=== PATIENT | female | born 1960 | race Caucasian/White ===

== ENCOUNTER 2019-08-16 21:03 | Observation (INO) | payer MEDICARE ==
[~2019-08-16] VITALS: Ht 177.8 cm; Wt 54.0 kg
--- NOTE | 2019-08-16 21:06 | NUR ---
PATIENT TO ROOM 13 VIA EMS STRETCHER. TRIAGE COMPLETED AT BEDSIDE. AWAITING MD PANDA.
[2019-08-16] MEDS ORDERED: PROTONIX40 M2 PO (21:27)
[2019-08-16] MEDS ORDERED: TRAZODONE50 MG PO (21:27)
[2019-08-16] MEDS ORDERED: ESCITALOPRAM OX10 MG PO (21:28)
[2019-08-16] MEDS ORDERED: LOMOTIL2.5 MG PO (21:29)
[2019-08-16] MEDS ORDERED: BUPRENORPHIN2 MG SL (21:30)
[2019-08-16 21:56] LABS: HEMATOCRIT 32.9 % (37.0-47.0); HEMOGLOBIN 11.2 g/dl (12.0-16.0); IMMATURE GRANULOCYTES 1.2 % (0.0-5.0); MEAN CELL VOLUME 89.2 fL CALC (80.0-100.0); MEAN CORPUSCULAR HGB 30.4 pG CALC (26.0-32.0); NEUT# 10.53 thou/uL (2.00-7.15); RED BLOOD COUNT 3.69 mill/uL (4.20-5.60); RED CELL DISTRI WIDTH 13.2 % (11.5-15.5)
[2019-08-16 22:13] LABS: ALKALINE PHOSPHATASE 156 u/l (38-126); AMYLASE 65 u/l (30-110); ANION GAP 13 (6-22 (CALC)); BILIRUBIN, TOTAL 1.5 mg/dL (0.0-1.4); BUN 18 mg/dL (7-17); BUN/CREATININE RATIO 21 (12-20 (CALC)); CARBON DIOXIDE 21 mmol/l (22-30); CHLORIDE 102 mmol/l (95-108); CREATININE 0.8 mg/dL (0.5-1.0); GFR > 60 ML/MIN (>=60 (CALC)); GFR FOR AFR.AMER. > 60 ML/MIN (>=60 (CALC)); LIPASE 42 u/l (23-300); POTASSIUM 3.4 mmol/l (3.5-5.1); SGOT/AST 46 u/l (14-36); SODIUM 132 mmol/l (137-146); TOTAL PROTEIN 8.2 g/dL (6.3-8.2)
[2019-08-16 22:25] LABS: MYOGLOBIN 37 ng/mL (0 - 62)
--- NOTE | 2019-08-16 22:45 | NUR ---
PT REFUSED CT SCANS DAUGHTER ATTEMPTED TO DISSUADE PT DR MALDONADO
--- NOTE | 2019-08-16 22:55 | NUR ---
PT AGREES TO CT FIRESTOP/CONTAINMENT WORKER INFORMED
--- NOTE | 2019-08-16 23:16 | NUR ---
W/P/D SKIN ASLEEP QUIETLY R SIDE LYING SR NO ECTOPY
[2019-08-17 00:21] LABS: URINE BLOOD DIPSTICK LARGE (NEGATIVE); URINE COLOR YELLOW; URINE GLUCOSE - DIPSTICK NEGATIVE (NEGATIVE); URINE KETONE NEGATIVE (NEGATIVE); URINE PROTEIN - DIPSTICK 30 mg/dL (NEG-TRACE); URINE UROBILINOGEN - DIPSTICK 0.2 E.U./dL (0.2)
[2019-08-17 00:31] LABS: URINE BILIRUBIN - DIPSTICK MODERATE (NEGATIVE); URINE LEUK ESTERASE LARGE (NEGATIVE); URINE NITRITE - DIPSTICK NEGATIVE (Negative)
[2019-08-17 00:32] LABS: URINE BACTERIA MANY hpf; URINE EPITHELIAL CELLS MODERATE EPI/hpf (0-FEW); URINE RBC >100 RBC/hpf (0-5); URINE WBC >100 WBC/hpf (0-5)
--- NOTE | 2019-08-17 00:37 | NUR ---
REMEDICATED FOER ABD PAIN RATED AT 7 NO N/V W/P/D SKIN
--- NOTE | 2019-08-17 01:29 | NUR ---
PT TAKES PO WATER SM AMTS WITH POTASSIUM TAB NO N/V PC
--- NOTE | 2019-08-17 02:12 | NUR ---
PHONE REPORT TO NURSE ROMERO ON MS
--- NOTE | 2019-08-17 02:15 | NUR ---
PT TRTANSPORTED TO RM271 MS IN STABLE CONDITION
--- NOTE | 2019-08-17 02:15 | NUR ---
PT ARRIVED TO THE MED SURG UNIT APPEARING IN STABLE CONDITION. PT WAS TRANSFERRED X3 ASSIST TO BED FROM STRETCHER. PT IS ASKING FOR BLANKETS/PROVIDED AND FOOD. DISCUSSED N/V STATUS WITH PT. ASSESSMENT COMPLETED AND V/S OBTAINED. COLOSTOMY HAS BALLARD LOOSE STOOL SMALL AMOUNT, DISCUSSED W/PT REGARDING SELF CARE REPORTED BY PT/DENIES NEED REGARDING THIS AT THIS TIME. PT REPORTS HAVING FISTULA'S IN RECTUM AREA, WE ATTEPTED PICTURES FOR CHART AND OFFERED NEW DRESSING, BUT PT REFUSED. SHE HAS PADS IN THAT AREA AND STATED, "I WILL TAKE CARE OF IT MYSELF." REFUSED BRANDI-CARE.
[2019-08-17 02:30] VITALS: BP 96/61
--- NOTE | 2019-08-17 02:30 | NUR ---
PT ASKED DEPUTY COURT CLERK FOR ICECREAM AND JUICE. I INFORMED PT THAT SHE NEEDS TO START WITH ICECHIPS AND WATER IF SHE HAS BEEN VOMITING, SHE DENIED VOMITING AND STATED THAT WAS "EARLY THIS MORNING."
--- NOTE | 2019-08-17 03:00 | NUR ---
PT IS SLEEPING AT THIS TIME. NO S/O DISTRESS NOTED.
[2019-08-17 03:23] VITALS: BP 104/65
--- NOTE | 2019-08-17 04:33 | NUR ---
PT CALLED ASKING FOR PAIN MEDICATION, I EXPLAINED TO THE PT THAT SHE ALREADY HAD MORPHINE IN THE ED AND THAT I HAD TYLENOL FOR THE MILD PAIN IF SHE WANTED THAT AND SHE COULD HAVE ATIVAN AT 6AM. SHE SAID TYLENOL MAKES HER SICK, I OFFERED ZOFRAN FOR NAUSEA/REFUSED STATING, "I'LL WAIT TILL 6." NO S/O DISTRESS NOTED. CALL LIGHT AT SIDE, LIGHTS TURNED OFF AND TV ON.
[2019-08-17 05:34] LABS: HEMATOCRIT 29.8 % (37.0-47.0); HEMOGLOBIN 10.3 g/dl (12.0-16.0); IMMATURE GRANULOCYTES 0.6 % (0.0-5.0); MEAN CELL VOLUME 89.5 fL CALC (80.0-100.0); MEAN CORPUSCULAR HGB 30.9 pG CALC (26.0-32.0); MEAN CORPUSCULAR HGB CONC 34.6 g/dL CAL (32.0-36.0); NEUT# 5.99 thou/uL (2.00-7.15); RED BLOOD COUNT 3.33 mill/uL (4.20-5.60); RED CELL DISTRI WIDTH 13.2 % (11.5-15.5)
[2019-08-17 05:46] LABS: ANION GAP 11 (6-22 (CALC)); BUN 15 mg/dL (7-17); BUN/CREATININE RATIO 22 (12-20 (CALC)); CARBON DIOXIDE 20 mmol/l (22-30); CHLORIDE 105 mmol/l (95-108); CREATININE 0.7 mg/dL (0.5-1.0); GFR > 60 ML/MIN (>=60 (CALC)); GFR FOR AFR.AMER. > 60 ML/MIN (>=60 (CALC)); POTASSIUM 3.3 mmol/l (3.5-5.1); SODIUM 132 mmol/l (137-146)
[2019-08-17 05:58] LABS: MAGNESIUM 0.3 mg/dL (1.6-2.3)
[2019-08-17 10:14] VITALS: BP 88/57
--- NOTE | 2019-08-17 10:14 | NUR ---
RECIEVED REPORT FROM IRMA ROMERO. PT RESTING IN SEMI FOWLERS POSITION UPON ENTERING ROOM. INTRODUCED SELF TO PT AND DISCUSSED POC. ASSESSMENT AND VITALS COMPLETED AT THIS TIME. BP 88/57, HR 83, O2 94% ON ROOM AIR. RESPIRATIONS ARE EVEN AND UNLABORED. LUNG SOUNDS ARE CLEAR. HEART RHYTHM IS NORMAL, TELE IN PLACE. BOWEL SOUNDS ARE ACTIVE IN ALL QUADRANTS. COLOSTOMY BAG IN PLACE, PT INFORMS WRITTER THAT SHE TAKES CARE OF IT HER SELF. RADIAL AND PEDAL PULSES ARE STRONG WITH NORMAL CAPILLARY REFILL. PT DOES PRESENT WITH LARGE BRUISE ON HER CHIN AND UNDER EYES, INFORMED THAT THEY WERE FROM A FALL PIROR TO ARRIVING TO [facility]. 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 PICTURES HAVE BEEN OBTAINED AND DOCUMENTED. PT INFORMS WRITTER THAT SHE ALSO CARES FOR THOSE HER SELF BY "PLACING PADS IN HER UNDERWEAR FOR THE BLEEDING". PT DOES COMPLAIN OF PAIN ALL OVER BODY, INFORMED PT THAT I DID NOT HAVE ANYTHING CURRENTLY FOR PAIN AND I WAS NOT ABLE TO GIVE ANYTHING DUE TO HER LOW BP. PT VERBALIZED UNDERSTANDING. KEELY INFORMED OF NEED FOR PAIN MEDICATION. IV RUNNING AT 125 ML ORDERED, SITE APPEARS HEALTHY AND PATENT. PT DENIES ANY PAIN OR DISCOMFORTS AT THIS TIME. ALL SAFTEY PRECAUTIONS IN PLACE. WILL CONTINUE TO MONITOR.
[2019-08-17 11:40] VITALS: BP 91/57
--- NOTE | 2019-08-17 12:00 | NUR ---
PT RESTING IN SEMI FOWLERS POSITION. RESPIRATIONS ARE EVEN AND UNLABORED. PT COMPLAINS OF BODY PAIN, KEELY NOTIFIED FOR NEED OF PAIN MED. NO NEW ORDERS RECIEVED AT THIS TIME. PT DENIES ANY OTHER PAINS OR DISCOMFORTS AT THIS TIME. ALL SAFTEY PRECAUTIONS ARE IN PLACE WITH CALL LIGHT IN REACH. WILL CONTINUE TO MONITOR
--- NOTE | 2019-08-17 14:53 | NUR ---
NEW ORDER FOR BUPRENEX TO ASSIST WITH PT PAIN,MED ADMISTERED WITH MEDICATION.PT RESPIRTAIONS ARE EVEN AND UNLABORED. PT DENIES ANY ADDITION DISCOMFORTS OR NEEDS AT THIS TIME. ALL SAFTEY PRECAUTIONS REMAIN IN PLACE AT THIS TIME. WILL CONTINUE TO MONITOR.
--- NOTE | 2019-08-17 16:00 | NUR ---
PT RESTING IN SEMI FOWLERS POSITION WATCHING TV, RESPIRATIONS ARE EVEN AND UNLABORED WITH NO SIGNS OF DISTRESS. PT INFORMS WRITTER THAT PAIN MEDICATION IS WORKING.PT DENIES ANY ADDITIONAL NEEDS AT THIS TIME. ALL SAFTEY PRECAUTIONS IN PLACE WITH CALL LIGHT IN REACH. WILL CONTINUE TO MONITOR.
[2019-08-17 16:17] VITALS: BP 84/50
[2019-08-17 18:30] VITALS: BP 87/55
--- NOTE | 2019-08-17 19:47 | NUR ---
PT RESTING IN BED, ALERT AND ORIENTED. RESPIRATIONS EVEN AND UNLABORED ON RA, LUNGS SOUND CLEAR. PEDAL PULSES ARE WEAK. PT REPORTS HAVING PAIN IN HER BACK 09/08, PT EDUCATED ON PAIN MED SCHEDULE AND PROVIDED WITH WARM PACKS. PT PROVIDED WITH A COLA PER REQUEST. TELE IN PLACE. CALL CUEVAS WITHIN REACH. WILL CONTINUE TO MONITOR.
--- NOTE | 2019-08-18 00:03 | NUR ---
PT RESTING IN BED. RESPIRATIONS EVEN AND UNLABORED. NO S/S OF DISTRESS AT THIS TIME. SAFETY PRECAUTIONS IN PLACE. WILL CONTINUE TO MONITOR.
--- NOTE | 2019-08-18 04:19 | NUR ---
ASSISTED PT BACK INTO BED FROM THE RESTROOM. SAFETY PRECAUTIONS IN PLACE. WILL CONTINUE TO MONITOR.
[2019-08-18 04:24] VITALS: BP 86/59
[2019-08-18 05:41] LABS: HEMOGLOBIN 10.2 g/dl (12.0-16.0); MEAN CELL VOLUME 89.6 fL CALC (80.0-100.0); MEAN CORPUSCULAR HGB 30.4 pG CALC (26.0-32.0); RED BLOOD COUNT 3.35 mill/uL (4.20-5.60); RED CELL DISTRI WIDTH 13.2 % (11.5-15.5)
[2019-08-18 06:13] LABS: ALBUMIN 2.4 g/dL (3.2-5.0); ALKALINE PHOSPHATASE 177 u/l (38-126); ANION GAP 10 (6-22 (CALC)); BILIRUBIN, TOTAL 1.1 mg/dL (0.0-1.4); BUN 15 mg/dL (7-17); BUN/CREATININE RATIO 23 (12-20 (CALC)); CARBON DIOXIDE 22 mmol/l (22-30); CHLORIDE 103 mmol/l (95-108); CREATININE 0.7 mg/dL (0.5-1.0); GFR > 60 ML/MIN (>=60 (CALC)); GFR FOR AFR.AMER. > 60 ML/MIN (>=60 (CALC)); MAGNESIUM 1.5 mg/dL (1.6-2.3); POTASSIUM 3.5 mmol/l (3.5-5.1); SGOT/AST 36 u/l (14-36); SODIUM 132 mmol/l (137-146); TOTAL PROTEIN 6.8 g/dL (6.3-8.2)
[2019-08-18 07:35] VITALS: BP 91/56
--- NOTE | 2019-08-18 09:30 | NUR ---
PT SEEN RESTING IN BED, ALERT AND ORIENTED X 3. LUNGS CLEAR, RA. PT PROVIDED SNACK. COLOSTOMY IN PLACE, SELF CARE.
--- NOTE | 2019-08-18 09:53 | NUR ---
PT screen Patient was screened for PT intervention. It is difficult to tell if she has functional disability that would could affect. We will review her in rounds as well but await medical before any PT intervention. I would recommend a behavioral health consult as given her Dx of narcotic withdrawal and chronic pain
[2019-08-18 11:10] VITALS: BP 88/57
[2019-08-18] MEDS ORDERED: BUPRENORPHIN2 MG SL (12:06)
[2019-08-18] MEDS ORDERED: KEFLEX500 MG PO (12:06)
--- NOTE | 2019-08-18 13:39 | NUR ---
PT SEEN BY DR MARQUEZ, WILL DISCHARGE TO HOME TODAY. PT TO RECEIVE ENOUGH PAIN MEDS TO LAST UNTIL THURSDAY APPT. TELE REMOVED. IV OUT.
[2019-08-18 14:10] VITALS: BP 85/57
--- NOTE | 2019-08-18 15:19 | NUR ---
PT HAS BEEN DISCHARGED FROM [facility]. DAUGHTER HAS ARRIVED TO DRIVE HER HOME. PT AND DTR VERBALIZE UNDERSTANDING OF DC INSTRUCTIONS, TAKEN BY WHEELCHAIR TO LOBBY. MEDICATIONS FROM PHARMACY RETURNED TO PT. PT LEAVES [facility] IN STABLE CONDITION, 2 RXs IN HAND.
[2019-08-18] MEDS ORDERED: ULTRAM50 M1 PO (17:58)
--- NOTE | 2019-08-19 12:14 | NUR ---
NEW RX FOR BACTRIM CALLED IN TO [facility] DUE TO URINE CX RESULTS. DAUGHTER KATALINA IS AWARE, WILL COCOA MILL OPERATOR WITH AFTERNOON. ALSO LM WITH PT
== END 2019-08-18 15:18 | disposition home health service (06) ==
LOC: ED 21:03 → ED-I 08-17 01:04 → ED 08-17 01:23 → MS2 08-17 01:24 → ED-I 08-17 01:24 → MS2 08-17 01:55
PROVIDERS: Emergency Medicine; Nurse Practitioner Family; ADMIT Internal Medicine; ATTEND Internal Medicine
DX: F11.23 Opioid dependence with withdrawal (principal); N39.0 Urinary tract infection, site not specified; E87.6 Hypokalemia; E83.42 Hypomagnesemia; G89.29 Other chronic pain; F10.20 Alcohol dependence, uncomplicated; R64 Cachexia; E46 Unspecified protein-calorie malnutrition; S00.83XA Contusion of other part of head, initial encounter; F17.210 Nicotine dependence, cigarettes, uncomplicated; W19.XXXA Unspecified fall, initial encounter; Z68.1 Body mass index [BMI] 19.9 or less, adult; Z93.3 Colostomy status; Z20.828 Contact with and (suspected) exposure to other viral communicable diseases; S09.90XA Unspecified injury of head, initial encounter; S49.92XA Unspecified injury of left shoulder and upper arm, initial encounter; S41.112A Laceration without foreign body of left upper arm, initial encounter; W10.9XXA Fall (on) (from) unspecified stairs and steps, initial encounter; Y92.009 Unspecified place in unspecified non-institutional (private) residence as the place of occurrence of the external cause
CPT/HCPCS: G0378; J2060; J3475

== ENCOUNTER 2019-08-18 20:12 | Emergency (ER) | payer MEDICARE ==
[~2019-08-18] VITALS: Ht 177.8 cm; Wt 63.6 kg
[~2019-08-18 20:12] MED LIST: BUPRENORPHIN2 MG SL; ESCITALOPRAM OX10 MG PO; KEFLEX500 MG PO; LOMOTIL2.5 MG PO; PROTONIX40 M2 PO; TRAZODONE50 MG PO; ULTRAM50 M1 PO
[2019-08-18 21:37] VITALS: BP 98/55
== END 2019-08-18 23:30 | disposition home or self-care (01) ==
LOC: ED 20:12
DX: S41.112A Laceration without foreign body of left upper arm, initial encounter (principal); S09.90XA Unspecified injury of head, initial encounter; W10.9XXA Fall (on) (from) unspecified stairs and steps, initial encounter; Y92.009 Unspecified place in unspecified non-institutional (private) residence as the place of occurrence of the external cause

== ENCOUNTER 2019-11-03 02:57 | Emergency (ER) | payer MEDICARE ==
[~2019-11-03] VITALS: Ht 177.8 cm; Wt 54.5 kg
[2019-11-03 03:38] LABS: HEMATOCRIT 34.3 % (37.0-47.0); IMMATURE GRANULOCYTES 0.5 % (0.0-5.0); MEAN CELL VOLUME 89.6 fL CALC (80.0-100.0); MEAN CORPUSCULAR HGB 28.7 pG CALC (26.0-32.0); MEAN CORPUSCULAR HGB CONC 32.1 g/dL CAL (32.0-36.0); NEUT# 12.47 thou/uL (2.00-7.15); RED BLOOD COUNT 3.83 mill/uL (4.20-5.60); RED CELL DISTRI WIDTH 14.6 % (11.5-15.5)
[2019-11-03 03:57] LABS: ALBUMIN 3.5 g/dL (3.2-5.0); ALKALINE PHOSPHATASE 358 u/l (38-126); AMYLASE 63 u/l (30-110); ANION GAP 14 (6-22 (CALC)); BILIRUBIN, TOTAL 0.8 mg/dL (0.0-1.4); BUN 10 mg/dL (7-17); BUN/CREATININE RATIO 14 (12-20 (CALC)); CARBON DIOXIDE 22 mmol/l (22-30); CHLORIDE 102 mmol/l (95-108); CREATININE 0.7 mg/dL (0.5-1.0); GFR > 60 ML/MIN (>=60 (CALC)); GFR FOR AFR.AMER. > 60 ML/MIN (>=60 (CALC)); LIPASE 76 u/l (23-300); SGOT/AST 47 u/l (14-36); SODIUM 135 mmol/l (137-146); TOTAL PROTEIN 9.1 g/dL (6.3-8.2)
[2019-11-03 04:08] LABS: MYOGLOBIN 24 ng/mL (0 - 62)
[2019-11-03 05:18] LABS: URINE BILIRUBIN - DIPSTICK NEGATIVE (NEGATIVE); URINE BLOOD DIPSTICK NEGATIVE (NEGATIVE); URINE COLOR YELLOW; URINE GLUCOSE - DIPSTICK NEGATIVE (NEGATIVE); URINE KETONE NEGATIVE (NEGATIVE); URINE NITRITE - DIPSTICK NEGATIVE (Negative); URINE PROTEIN - DIPSTICK TRACE mg/dL (NEG-TRACE)
[2019-11-03 05:30] LABS: URINE LEUK ESTERASE MODERATE (NEGATIVE)
[2019-11-03 06:02] LABS: URINE BACTERIA MANY hpf; URINE SQUAMOUS EPITHELIAL CELL FEW EPI/hpf (0-FEW); URINE WBC 50-100 WBC/hpf (0-5)
[2019-11-03 09:00] VITALS: BP 123/63
== END 2019-11-03 07:35 | disposition short-term general hospital (02) ==
LOC: ED 02:57
PROVIDERS: Emergency Medicine
DX: L02.31 Cutaneous abscess of buttock (principal); L98.8 Other specified disorders of the skin and subcutaneous tissue; N39.0 Urinary tract infection, site not specified; E87.6 Hypokalemia; E83.42 Hypomagnesemia; K50.90 Crohn's disease, unspecified, without complications; M41.9 Scoliosis, unspecified; F17.210 Nicotine dependence, cigarettes, uncomplicated; Z93.3 Colostomy status; Z90.49 Acquired absence of other specified parts of digestive tract; Z20.828 Contact with and (suspected) exposure to other viral communicable diseases
CPT/HCPCS: J1956; J3475; Q9967

== ENCOUNTER 2019-11-23 21:56 | Emergency (ER) | payer MEDICARE ==
[~2019-11-23] VITALS: Ht 177.8 cm; Wt 66.0 kg
[2019-11-23] MEDS ORDERED: PROTONIX40 M2 PO (22:08)
[2019-11-23] MEDS ORDERED: TYLENOL500 MG PO (22:09)
[2019-11-23] MEDS ORDERED: LOMOTIL2.5 MG PO (22:09)
[2019-11-23] MEDS ORDERED: TRAZODONE50 MG PO (22:11)
[2019-11-23] MEDS ORDERED: LEXAPRO10 MG PO (22:11)
[2019-11-23 22:21] LABS: IMMATURE GRANULOCYTES 0.4 % (0.0-5.0); MEAN CORPUSCULAR HGB 28.4 pG CALC (26.0-32.0); MEAN CORPUSCULAR HGB CONC 31.2 g/dL CAL (32.0-36.0); NEUT# 5.19 thou/uL (2.00-7.15); RED BLOOD COUNT 2.89 mill/uL (4.20-5.60)
[2019-11-23 22:22] LABS: HEMATOCRIT 26.3 % (37.0-47.0); HEMOGLOBIN 8.2 g/dl (12.0-16.0)
[2019-11-23 22:40] LABS: ALBUMIN 3.1 g/dL (3.2-5.0); ALKALINE PHOSPHATASE 301 u/l (38-126); BUN 15 mg/dL (7-17); BUN/CREATININE RATIO 19 (12-20 (CALC)); CREATININE 0.8 mg/dL (0.5-1.0); GFR > 60 ML/MIN (>=60 (CALC)); GFR FOR AFR.AMER. > 60 ML/MIN (>=60 (CALC)); SGOT/AST 36 u/l (14-36); SODIUM 139 mmol/l (137-146); TOTAL PROTEIN 7.6 g/dL (6.3-8.2)
[2019-11-23 22:41] LABS: ANION GAP 12 (6-22 (CALC)); BILIRUBIN, TOTAL 0.4 mg/dL (0.0-1.4); CARBON DIOXIDE 16 mmol/l (22-30); CHLORIDE 115 mmol/l (95-108); POTASSIUM 3.8 mmol/l (3.5-5.1)
[2019-11-24] MEDS ORDERED: BACTRIM DS1 TAB PO (00:27)
[2019-11-24] MEDS ORDERED: TRAMADOL HCL50 MG PO (00:27)
[2019-11-24 00:28] LABS: URINE BILIRUBIN - DIPSTICK NEGATIVE (NEGATIVE); URINE BLOOD DIPSTICK TRACE-INTACT (NEGATIVE); URINE COLOR YELLOW; URINE GLUCOSE - DIPSTICK NEGATIVE (NEGATIVE); URINE KETONE NEGATIVE (NEGATIVE); URINE NITRITE - DIPSTICK NEGATIVE (Negative); URINE PROTEIN - DIPSTICK NEGATIVE (NEG-TRACE); URINE UROBILINOGEN - DIPSTICK 0.2 E.U./dL (0.2)
[2019-11-24 00:45] LABS: URINE LEUK ESTERASE MODERATE (NEGATIVE)
[2019-11-24 00:56] LABS: URINE BACTERIA FEW hpf; URINE SQUAMOUS EPITHELIAL CELL FEW EPI/hpf (0-FEW); URINE WBC 20-50 WBC/hpf (0-5)
[2019-11-24 09:01] VITALS: BP 127/63
== END 2019-11-24 09:01 | disposition home or self-care (01) ==
LOC: ED 21:56
PROVIDERS: Family Medicine
DX: E46 Unspecified protein-calorie malnutrition (principal); K60.4 Rectal fistula; K50.90 Crohn's disease, unspecified, without complications; F17.210 Nicotine dependence, cigarettes, uncomplicated; Z90.49 Acquired absence of other specified parts of digestive tract; Z93.3 Colostomy status
CPT/HCPCS: Q9967

== ENCOUNTER 2020-02-01 21:03 | Emergency (ER) | payer MEDICARE ==
[~2020-02-01] VITALS: Ht 177.8 cm; Wt 56.0 kg
[~2020-02-01 21:03] MED LIST changes: +BACTRIM DS1 TAB PO; +LEXAPRO10 MG PO; +TRAMADOL HCL50 MG PO; +TYLENOL500 MG PO
[2020-02-01 22:02] LABS: HEMATOCRIT 28.3 % (37.0-47.0); HEMOGLOBIN 8.8 g/dl (12.0-16.0); IMMATURE GRANULOCYTES 0.5 % (0.0-5.0); MEAN CELL VOLUME 87.9 fL CALC (80.0-100.0); MEAN CORPUSCULAR HGB 27.3 pG CALC (26.0-32.0); MEAN CORPUSCULAR HGB CONC 31.1 g/dL CAL (32.0-36.0); NEUT# 7.08 thou/uL (2.00-7.15); RED BLOOD COUNT 3.22 mill/uL (4.20-5.60); RED CELL DISTRI WIDTH 16.2 % (11.5-15.5)
[2020-02-01 22:24] LABS: ALBUMIN 3.7 g/dL (3.2-5.0); ANION GAP 15 (6-22 (CALC)); BILIRUBIN, TOTAL 0.4 mg/dL (0.0-1.4); BUN 26 mg/dL (7-17); BUN/CREATININE RATIO 25 (12-20 (CALC)); CARBON DIOXIDE 17 mmol/l (22-30); CHLORIDE 110 mmol/l (95-108); GFR 57 ML/MIN (>=60 (CALC)); GFR FOR AFR.AMER. > 60 ML/MIN (>=60 (CALC)); POTASSIUM 4.1 mmol/l (3.5-5.1); SGOT/AST 52 u/l (14-36); SODIUM 138 mmol/l (137-146); TOTAL PROTEIN 8.7 g/dL (6.3-8.2)
[2020-02-01 22:26] LABS: ALKALINE PHOSPHATASE 489 u/l (38-126)
[2020-02-01] MEDS ORDERED: TRAMADOL HYDROC50 MG PO (23:59)
[2020-02-01] MEDS ORDERED: BACTRIM DS1 TAB PO (23:59)
[2020-02-02 08:30] VITALS: BP 117/66
== END 2020-02-02 08:30 | disposition home or self-care (01) ==
LOC: ED 21:03
PROVIDERS: Family Medicine
DX: K50.113 Crohn's disease of large intestine with fistula (principal); L03.317 Cellulitis of buttock; F17.200 Nicotine dependence, unspecified, uncomplicated; Z93.3 Colostomy status
CPT/HCPCS: Q9967

== ENCOUNTER 2020-02-13 15:57 | Inpatient (IN) | payer MEDICARE ==
[~2020-02-13] VITALS: Ht 177.8 cm; Wt 64.0 kg
[~2020-02-13 15:57] MED LIST changes: +TRAMADOL HYDROC50 MG PO
--- NOTE | 2020-02-13 16:05 | NUR ---
PATIENT ARRIVED VIA EMS AND IS ON DELAYED OFFLOAD. PATIENT IS ALERT AND ORIENTED. MD NOTIFIED OF PATIENT STATUS
--- NOTE | 2020-02-13 16:24 | NUR ---
PATEINT TO ROOM 9 FOR EXAM MD NOTIFIED OF PATIENT STATUS
[2020-02-13] MEDS ORDERED: LEXAPRO10 MG PO (17:00)
[2020-02-13] MEDS ORDERED: BACTRIM DS1 TAB PO (17:01)
--- NOTE | 2020-02-13 17:29 | NUR ---
LABS DRAWN, MEDICATION ADMINSTRED PT WITHOUT DISTRESS
[2020-02-13 17:33] LABS: HEMATOCRIT 25.1 % (37.0-47.0); IMMATURE GRANULOCYTES 0.6 % (0.0-5.0); MEAN CORPUSCULAR HGB 26.1 pG CALC (26.0-32.0); MEAN CORPUSCULAR HGB CONC 31.9 g/dL CAL (32.0-36.0); NEUT# 12.76 thou/uL (2.00-7.15); RED BLOOD COUNT 3.06 mill/uL (4.20-5.60)
[2020-02-13 17:50] LABS: URINE BILIRUBIN - DIPSTICK NEGATIVE (NEGATIVE); URINE BLOOD DIPSTICK NEGATIVE (NEGATIVE); URINE COLOR YELLOW; URINE GLUCOSE - DIPSTICK NEGATIVE (NEGATIVE); URINE KETONE NEGATIVE (NEGATIVE); URINE LEUK ESTERASE NEGATIVE (NEGATIVE); URINE NITRITE - DIPSTICK NEGATIVE (Negative); URINE PROTEIN - DIPSTICK NEGATIVE (NEG-TRACE); URINE SPECIFIC GRAVITY >=1.030; URINE UROBILINOGEN - DIPSTICK 0.2 E.U./dL (0.2)
[2020-02-13 17:52] LABS: ALBUMIN 2.6 g/dL (3.2-5.0); BILIRUBIN, TOTAL 0.4 mg/dL (0.0-1.4); CREATININE 1.2 mg/dL (0.5-1.0); POTASSIUM 3.2 mmol/l (3.5-5.1); TOTAL PROTEIN 6.9 g/dL (6.3-8.2)
--- NOTE | 2020-02-13 18:23 | NUR ---
PRIOR TO RADIOLOGY DILUADID GIVEN
--- NOTE | 2020-02-13 19:04 | NUR ---
PT REPORTS IMPROVEMENT WITH DILAUDID FROM A 9 TO A 3
--- NOTE | 2020-02-13 19:43 | NUR ---
PT WENT TO ULTRASOUND
--- NOTE | 2020-02-13 20:19 | NUR ---
PT RETURNED FROM RADIOLOGY GAVE ANTIBIOTICS WILL GIVE VANCO AFTER ZOSYN COMPLETED
--- NOTE | 2020-02-13 21:26 | NUR ---
DILAUDID GIVEN FOR PAIN AFTER ULTRASOUND AGGRAVATED IT
--- NOTE | 2020-02-13 22:02 | NUR ---
IMPROVEMENT FROM PAIN AFTER DILAUDID
--- NOTE | 2020-02-13 23:07 | NUR ---
Admission Note Report Given to: IRMA VALERO Transported by: Wheelchair X Stretcher Transported with: X Nurse Transporter X Patent IV O2 X Durability Engineer Location: ICU X MS2
[2020-02-13 23:19] VITALS: BP 114/65
[2020-02-14] VITALS (10 sets, daily range): BP systolic 85–119; BP diastolic 50–66
--- NOTE | 2020-02-14 | NUR ---
PATIENT ADMITTED FROM ER VIA STRETCHER WITH ER STAFF IN ATTENDANCE. PATIENT IS ABLE TO WALK TO THE BED. AWAKE ALERT AND ORIENTEDX3. PATIENT ADMITTED FOR ABD PAIN/CHOLECYSTITIS. PATIENT WITH C/O ABD PAIN. NPO AT THIS TIME. PATIENT WITH COLOSTOMY TO LEFT ABD-APPLIANCE IS INTACT WITH SMALL AMT OF SOFT BROWN STOOL NOTED. IV SITE TO LEFT AC INTACT. IVF NS HUNG AND INFUSING AT 125CC/HR. SITE IS HEALTHY AT THIS TIME. PATIENT ORIENTED TO ROOM AND SURROUNDINGS. INSTRUCTED ON USE OF NURSE CALL LIGHT SYSTEM AND TV REMOTE. SAFETY PRECAUTIONS REVIEWED WITH PATIENT. CALL LIGHT IN REACH. WILL CONT TO MONITOR.
--- NOTE | 2020-02-14 02:00 | NUR ---
ZOSYN INFUSING ORDERED VIA LEFT AC SITE. MEDICATED FOR PAIN WITH MORPHINE 2MG IVP FOR 9/10 ON PAIN SCALE. IVF NS PATENT AND INFUSING ORDERED. CALL LIGHT IN REACH. WILL CONT TO MONITOR.
--- NOTE | 2020-02-14 06:30 | NUR ---
PATIENT RESTING IN BED-MEDICATED FOR C/O NAUSEA WITH ZOFRAN ORDERED AND WITH MORPHINE 2MG IVP FOR ABD PAIN. REMAINS NPO-IVF NS PATENT AND INFUSING VIA LEFT AC SITE AT 125CC/HR. ZOSYN INFUSED ORDERED. CALL LIGHT IN REACH. WILL CONT TO MONITOR.
--- NOTE | 2020-02-14 07:05 | NUR ---
REPORT RECEIVED FROM IRMA VALERO
--- NOTE | 2020-02-14 08:35 | NUR ---
AT BEDSIDE DISCUSSING POC.
--- NOTE | 2020-02-14 08:45 | NUR ---
PT RESTING IN SEMI FOWLERS POSITION,A&O X3;VS OBTAINED AND ASSESSMENT COMPLETED;PT REPORTS ABDOMINAL PAIN RATING 8/10 ON THE PAIN SCALE AND REQUESTS PRN PAIN MEDICATION;PT REFUSES MORPHINE AND REQUESTS MD IRAM NOTIFIED;RESPIRATIONS EVEN AND UNLABORED ON RA,CLEAR LUNG SOUNDS;ABDOMEN SOFT ON PALPATION AND ACTIVE IN ALL 4 QUADRANTS, TENDERNESS NOTED THROUGHOUT;COLOSTOMY BAG NOTED TO LEFT ABDOMEN, STOMA APPEARS HEALTHY IN COLOR;TELE MONITORING IN PLACE;STRONG PEDAL PULSES;EMS #20G TO LAC INFUSING NS @ 125ML/HR,SITE APPEARS HEALTHY;PT DENIES ANY ADDITIONAL NEEDS AT THIS TIME AND IS ENCOURAGED TO CALL FOR ASSISTANCE IF NEEDED;CALL LIGHT IN REACH;FREQUENT ROUNDS MADE.
--- NOTE | 2020-02-14 10:13 | NUR ---
PT MEDICATED WITH PRN DILAUDID 1MG IVP AT THIS TIME FOR ABDOMINAL PAIN RATING 8/10 ON THE PAIN SCALE;WILL CONTINUE TO MONITOR FOR EFFECTIVENESS
--- NOTE | 2020-02-14 11:35 | NUR ---
PT RESTING IN SEMI FOWLERS POSITION;RESPIRATIONS EVEN AND UNLABORED ON RA;PT REPORTS ABDOMINAL PAIN RELIEF AFTER PAIN MEDICATION ADMINISTRATION RATING PAIN 4/10 ON THE PAIN SCALE;IV FLUIDS INFUSING WITH EASE PER ORDER AND ABX STARTED AT THIS TIME;TELE MONITORING IN PLACE;PT DENIES ANY ADDITIONAL NEEDS AT THIS TIME;ENCOURAGED TO CALL FOR ASSISTANCE IF NEEDED;FALL PRECAUTIONS IN PLACE WITH CALL LIGHT IN REACH;FREQUENT ROUNDS MADE.
--- NOTE | 2020-02-14 12:38 | NUR ---
LAB AT BEDSIDE
--- NOTE | 2020-02-14 12:40 | NUR ---
PT TRANSPORTED TO OR AT THIS TIME VIA STRETCHER ACCOMPANIED BY IRMA ELLISON.
--- NOTE | 2020-02-14 16:10 | NUR ---
PT ARRIVED BACK TO MED/SURG ROOM 272 IN STABLE CONDITION VIA STRETCHER ACCOMPANIED BY ADA RN;PT ASSISTED TO BEDSIDE WITH MINIMAL ASSISTANCE;PT REPORTS A&O X3 BUT DROWSY;VS OBTAINED AND ASSESSMENT COMPLETED;PT REPORTS ABDOMINAL PAIN RATING 10/10 ON THE PAIN SCALE, PT TO BE MEDICATED WITH PRN DILAUDID 1MG IVP PER ORDER;RESPIRATIONS EVEN AND UNLABORED ON RA;DRESSING TO ABDOMEN CDI X3;SABINO DRAIN DRAINING MINIMAL BLOODY DRAINAGE;EMS #20G TO LAC INFUSING PER ORDER AND 20MEQ OF K STARTED AT THIS TIME;TELE MONITORING PLACED BACK ONTO PT;PT DENIES ANY ADDITIONAL NEEDS AND IS ENCOURAGED TO CALL FOR ASSISTANCE IF NEEDED;FALL PRECAUTIONS IN PLACE WITH CALL LIGHT IN REACH;FREQUENT ROUNDS TO BE MADE.
--- NOTE | 2020-02-14 17:40 | NUR ---
PT APPEARS TO BE SLEEPING UPON ENTERING THE ROOM, WAKES EASILY TO VERBAL STIMULI;PT REPORTS ABDOMINAL PAIN AND REQUESTS PRN DILAUDID.PT EDUCATED ON DILAUDID PAIN MEDICATION SCHEDULE AND VERBALIZES UNDERSTANDING;IV FLUIDS CONTINUE TO INFUSE WITH EASE;TELE MONITORING IN PLACE AND JOSE CRUZ DRAIN EMPTIED OF 20CC OF BLOODY DRAINAGE;PT DENIES ANY ADDIITONAL NEEDS;CALL LIGHT IN REACH;FREQUENT ROUNDS MADE.
--- NOTE | 2020-02-14 20:00 | NUR ---
PATIENT RESTING IN BED AT THIS TIME-PALE AND C/O SEVERE POST-OP ABD PAIN-BP-107/58 HR-62. PAIN IS 9/10AND PATIENT MEDICATED WITH DILAUDID 1MG IVP FOR PAIN. IV SITE TO LEFT AC INTACT WITH IVF NS PATENT AND INFUSING AT 125CC/HR. SITE IS HEALTHY. PATIENT WITH JOSE CRUZ DRAIN TO RIGHT ABD INTACT AND DRAINING SEROSANGUINOUS FLUID. SMALL AMT OF SHADOWING NOTED TO LATERAL PORTION OF ABD POST-OP DRESSING. OTHER 2 ABD DRESSINGS ARE CDI. ABD IS SOFT WITH ACTIVE BS. COLOSTOMY APPLIANCE INTACT WITH SMALL AMT OF SOFT BROWN STOOL NOTED. TELE MONITOR IN PLACE. SAFETY PRECAUTIONS REINFORCED. WITH PATIENT. CALL LIGHT IN REACH. WILL CONT TO MONITOR.
--- NOTE | 2020-02-14 22:15 | NUR ---
PATIENT CALLED AND REQUESTING PAIN/ NAUSEA MEDS. BP-95/57, HR-87. PATIENT MEDICATED FOR NAUSEA WITH ZOFRAN 4MG IVP. IVF PATENT AND INFUSING VIA LEFT AC SITE AT 125CC/HR. MAG SULFATE HUNG ORDERED. CALL LIGHT IN REACH. WILL CONT TO MONITOR.
--- NOTE | 2020-02-14 23:50 | NUR ---
PATIENT CALLED AND REPORTED THAT "HER INCISION OPENED UP"-RESPONDED TO PATIENT ROOM AND FOUND THAT PATIENT RIGHT SIDE ABD DRESSING SATURATED AND PATIENT GOWN SAT WITH BLOOD WELL LINEN PAD UNDER PATIENT. DRESSING REMOVED AND FOUND DONAL INTACT AND OOZING FROM LAT PORTION OF INCISION. PRESSURE APPLIED AND NEW DRESSING APPLIED-4X4 AND ABD SECURED WITH PAPERTAPE. OTHER DRESSINGSX2 REMOVED AND DONAL INTACT WITH NO DRAINAGE NOTED. 4X4 GAUIZE DRESSINGS APPLIED AND SECURED WITH TEGADERM. JOSE CRUZ DRAIN EMPTIED FOR 50CC OF BLOODY DRAINAGE. PATIENT VERY EMOTIONAL AND C/O SEVERE ABD PAIN-10/10 ON PAIN SCALE-MEDICATED WITH DILAUDID 1MG FOR PAIN. BP PRIOR TO PAIN MEDS 119/55.
[2020-02-15] VITALS (9 sets, daily range): BP systolic 86–132; BP diastolic 51–67
--- NOTE | 2020-02-15 00:30 | NUR ---
PATIENT RESTING IN BED-STATES THAT HER PAIN IS NOW 9/10 AND WANTS TO KNOW HOW MUCH DILAUDID SHE GOT AND WHEN CAN SHE GET IT AGAIN. PATIENT DOES NOT APPEAR IN DISTRESS. PATIENT WAS TOLD HOW MUCH SHE RECIEVED AND WHEN SHE CAN BE MEDICATED AGAIN. PATIENT WATCHING TV.MAG SULFATE INFUSING ORDERED. ABD DRESSING IS CDI AT THIS TIME. CALL LIGHT IN REACH. WILL CONT TO MONITOR.
--- NOTE | 2020-02-15 04:41 | NUR ---
DRESSING TO RIGHT ABD IS SATURATED AGAIN-4X4 AND ABD. REMOVED AND DONAL REMAIN IN PLACE. NEW DRESSING OF 4X4'S AND ABDS APPLIED AND SECURED WITH PAPER TAPE. OTHER DRESSING REMAIN CDI AT THIS TIME. PATIENT CONT TO C/O SEVERE ABD PAIN EVEN THOUGH SHE HAS BEEN MEDICATED FOR PAIN ORDERED. TAKING PO DIET WITHOUT ANY DIFFICULTY AND NO FURTHER NAUSEA REPOLRTED. CALL LIGHT IN REACH, WILL CONT TO MONITOR.
--- NOTE | 2020-02-15 04:44 | NUR ---
PATIENT C/O SEVERE ABD PAIN-9/1P0 O N PAIN SCALE. MEDICATED WITH DILAUDID 1MG IVP ORDERED FOR PAIN. IVF PATENT AND INFUSING AT 125CC/HR VIA LEFT AC SITE. CALL LIGHT IN REACH. WILL CONT TO MONITOR.
[2020-02-15 06:36] LABS: HEMATOCRIT 25.1 % (37.0-47.0); HEMOGLOBIN 7.5 g/dl (12.0-16.0); IMMATURE GRANULOCYTES 0.6 % (0.0-5.0); MEAN CORPUSCULAR HGB CONC 29.9 g/dL CAL (32.0-36.0); NEUT# 14.72 thou/uL (2.00-7.15); RED BLOOD COUNT 2.88 mill/uL (4.20-5.60); RED CELL DISTRI WIDTH 16.5 % (11.5-15.5)
[2020-02-15 06:39] LABS: MEAN CELL VOLUME 87.2 fL CALC (80.0-100.0)
[2020-02-15 06:56] LABS: ALBUMIN 2.7 g/dL (3.2-5.0); ALKALINE PHOSPHATASE 403 u/l (38-126); BUN 22 mg/dL (7-17); BUN/CREATININE RATIO 22 (12-20 (CALC)); CARBON DIOXIDE 14 mmol/l (22-30); CHLORIDE 113 mmol/l (95-108); GFR 57 ML/MIN (>=60 (CALC)); GFR FOR AFR.AMER. > 60 ML/MIN (>=60 (CALC)); SGOT/AST 34 u/l (14-36); SODIUM 136 mmol/l (137-146); TOTAL PROTEIN 6.9 g/dL (6.3-8.2)
[2020-02-15 07:03] LABS: ANION GAP 14 (6-22 (CALC)); BILIRUBIN, TOTAL 0.2 mg/dL (0.0-1.4); POTASSIUM 5.2 mmol/l (3.5-5.1)
--- NOTE | 2020-02-15 07:45 | NUR ---
DR JOHNSON AT BEDSIDE DISCUSSING POC
--- NOTE | 2020-02-15 07:47 | NUR ---
RECIEVED REPORT FROM IRMA VALERO. PT RESTING IN SEMI FOWLERS POSITION UPON ENTERING ROOM. INTRODUCED SELF TO PT AND DISCUSSED POC. PT IS A/O X3. ASSESSMENT AND VITALS COMPLETED. BP 132/67, HR 67, O2 100% ON ROOM AIR. RESPIRATIONS ARE EVEN AND UNLABORED . HEART RHYTHM IS NORMAL WITH TELE IN PLACE, SR PER ER MONITORING. BOWEL SOUNDS ARE ACTIVE IN ALL QUADRANTS. COLOSTOMY BAG IN LEFT LOWER QUADRANT, LOOSE BROWN STOOL PRESENT. PT DOES CARE FOR COLOSTOMY BAG BY SELF. RADIAL AND PEDAL PULSES ARE STRONG. #20G IN LAC RUNNING WITH IVF PER ORDER, SITE APPEARS HEALTHY AND PATENT. PT COMPLAINS OF 10/10 PAIN AT THIS TIME. PT TO BE MEDICATED PER EMAR. PT DENIES ANY ADDITIONAL NEEDS AT THIS TIME. ALL SAFETY PRECAUTIONS ARE IN PLACE WITH CALL LIGHT IN REACH. WILL CONTINUE TO MONITOR
--- NOTE | 2020-02-15 10:26 | NUR ---
REASSESSMENT OF PAIN AT THIS TIME RESULTING IN 10/09. DRESSING TO RIGHT ABD CHANGED DUE TO BEING SOILED. SITE APPEARS TO BE DRAINING OF LAST STAPLE. DR JOHNSON TO BE NOTFIED. DRESSING REMAINS CDI. JOSE CRUZ DRAIN EMPTIED, 20 OF BLOODY OUTPUT NOTED. PT DENIES OF ANY NEEDS AT THIS TIME. ALL SAFETY PRECAUTIONS ARE IN PLACE WIHT CALL LIGHT IN REACH. WILL CONTINUE TO MONITOR
--- NOTE | 2020-02-15 10:55 | NUR ---
DR JOHNSON CALLED TO INFORM OF BLEEDING FROM SURGICAL SITE.NO ANSWER. MESSAGE LEFT.
--- NOTE | 2020-02-15 11:15 | NUR ---
DR JOHNSON NOTFIED OF BLEEDING FROM SURGICAL SITE. ORDERED FOR SILVER NITRATE SWAB AND WOULD BE UP LATER TO ASSESS. ABD DRESSING REMAINS CDI AT THIS TIME. ALL SAFETY PRECAUTIONS ARE IN PLACE WITH CALL LIGHT IN REACH. WILL CONTINUE TO MONITOR
--- NOTE | 2020-02-15 12:15 | NUR ---
PT RESTING IN SEMI FOWLERS POSITION WATCHING TV. RESPRIATIONS ARE EVEN AND UNLABORED ON ROOM AIR. DRESSING ARE CDI AT THIS TIME.COLOSTOMY BAG REAMINS IN PLACE. TELE MONITORING IN PLACE, SB PER ER MONITORING. PT DENIES OF ANY NEEDS AT THIS TIME. ALL SAFETY PRECAUTIONS ARE IN PLACE WIHT CALL LIGHT IN REACH. WILL CONTINUE TO MONITOR
--- NOTE | 2020-02-15 13:16 | NUR ---
DAUGHTER CALLED REQUESTING UPDATE. PASSCODE CODE PRODIVDED PER PT APPROVAL.
--- NOTE | 2020-02-15 14:57 | NUR ---
PT REQUEST FOR ATIVAN AT THIS TIME. ACID PURIFIER INFORMED PT THAT ATIVAN WAS NOT AVAILABLE AT THIS TIME DUE TO LOW BP. PT BEGAN TO CRY STATING SHES HAVING PANIC ATTACKS. ACID PURIFIER ACCOMPAINED PT UNTILL SHE WAS CALM. PT REQUEST FOR MULTIPLE CHOCLATE ICE CREAM AND PUDDING. ALL SAFTEY PRECAUTIONS ARE IN PLACE WIHT CALL LIGHT IN REACH. WILL CONTINUE TO MONITOR
--- NOTE | 2020-02-15 15:16 | NUR ---
REPORTED BP OF 86/56. [place],ANRP NOTFIED. 250 BOLUS ORDERED. PT REQUEST FOR PAIN MEDICATION. ACADEMIC DIRECTOR INFORMED PT THAT PAIN MEDICATION WAS NOT AVAILABLE DUE TO LOW BP. ALL SAFETY PRECAUTIONS ARE IN PLACE WITH CALL DIPESH MEDELLIN. WILL CONTINUE TO MONITOR
--- NOTE | 2020-02-15 15:52 | NUR ---
REASSESSMENT OF BP RESUTLING IN 100/62, HR 60, O2 100% ON ROOM AIR. RESPIRATIONS ARE EVEN AND UNLABORED. PT COMPLAINS OF 10/10 PAIN. DILUADID ADMINISTERED, APPROVAL FROM [facility]. ALL SAFETY PRECAUTIONS ARE IN PLACE WITH CALL LIGHT IN REACH. WILL CONTINUE TO MONITOR
--- NOTE | 2020-02-15 15:54 | NUR ---
DR JOHNSON AT BEDSIDE
--- NOTE | 2020-02-15 19:46 | NUR ---
PATIENT RESTING IN BED AT THIS TIME-AWAKE ALERT AND ORIENTEDX3. PATIENT C/O OF CONT POST-OP PAIN-8/10 ON PAIN SCALE. PATIENT MEDICATED WITH DILAUDID 2MG IVP FOR PAIN VIA RAC IV SITE. SITE IS HEALTHY WITH GOOD BLOOD RETURN-EMS SITE AND NEEDS TO BE CHANGED PER PROTOCOL BUT PATIENT IS REFUSING CHANGE AT THIS TIME-STATES "THIS IS WORKING FINE AND I'M A HARD STICK". TELE MONITOR IN PLACE. ABD DRESSING TO RIGHT ABD IS CDI AT THIS TIME. COLOSTOMY APPLIANCE TO LEFT ABD INTACT WITH ONLY SMALL AMT OF SOFT BROWN STOOL AT STOMA. ENCOURAGED USE OF IS Q1H WHILE AWAKE AND USE OF SCD'S. CALL LIGHT IN REACH. WILL CONT TO MONITOR.
--- NOTE | 2020-02-15 23:45 | NUR ---
PATIENT RESTING IN BED AT THIS TIME TALKING ON THE PHONE. ZOSYN HUNG ORDERED VIA LAC IV SITE. PATIENT STATES NO RELIEF FROM LAST DOSE OF DILAUDID GIVEN AT 2238. PATIENT IS VERY EMOTIONAL AND STATES THAT SHE HAD TO CHANGE HER OSTOMY APPLIANCE AND DIDN'T GET ANY RELIEF FROM PAIN MEDS GIVEN. PATIENT HAS HAD HER COLOSTOMY FOR 5YEARS AND HAS BEEN DOING HER OWN COLOSTOMY CARE. ABD DRESSING CDI AND INTACT. CALL LIGHT IN REACH. WILL CONT TO MONITOR.
[2020-02-16] VITALS (11 sets, daily range): BP systolic 91–156; BP diastolic 48–74
--- NOTE | 2020-02-16 03:26 | NUR ---
PATIENT AWAKE ALERT AND C/O POST-OP PAIN TO RIGHT ABD-POST-OP PAIN 9/10 ON PAIN SCALE. MEDICATED FOR PAIN WITH DILAUDID 2MG IVP. PATIENT TAKING FULL LIQUIDS AND TOLERATING WELL. IVF PATENT AND INFUSING AT KVO RATE VIA LAC SITE. PATIENT CONT TO REFUSE TO HAVE SITE CHANGED AT THIS TIME. ABD DRESSING IS CDI AT THIS ITME. CALL LIGHT IN REACH. WILL CONT TO MONITOR.
--- NOTE | 2020-02-16 05:18 | NUR ---
PATIENT UP TO THE BR--STATES THAT SHE RECIEVED LITTLE RELIEF FROM PAIN MEDS GIVEN-STATES THAT EVERYTIME THAT SHE HAS TO GET UP THAT HER PAIN INCREASES AGAIN. ATTEMPT MADE TO DISCUSS PAIN MANAGEMENT ISSUES WITH THE PAIN REINALOD REGUARDING CHANGING FROM IV PAIN MEDS TO ORAL MEDS WHEN PAIENT IS MOVING TOWARD BEING DISCHARGED. PATIENT BECAME EMOTIONAL AND TEARFUL-STATES THAT SHE HAS NO PCP ONLY TELEMEDICAL STAFF. REASSURANCE OFFERED. PATIENT TAKING PO FULL LIQUIDS WITHOUT ANY DIFFICULTY. IVF PATENT AT KVO RATE VIA LAC SITE. TELE MONITOR IN PLACE. ABD DRESSING CDI AT THIS TIME. COLOSTOMY APPLIANCE INTACT. SAFETY PRECAUTIONS REINFORCED. CALL LIGHT IN REACH. WILL CONT TO MONITOR.
[2020-02-16 05:20] LABS: HEMATOCRIT 22.2 % (37.0-47.0); MEAN CELL VOLUME 86.7 fL CALC (80.0-100.0); MEAN CORPUSCULAR HGB 26.2 pG CALC (26.0-32.0); MEAN CORPUSCULAR HGB CONC 30.2 g/dL CAL (32.0-36.0); RED BLOOD COUNT 2.56 mill/uL (4.20-5.60); RED CELL DISTRI WIDTH 16.4 % (11.5-15.5)
[2020-02-16 05:53] LABS: ALKALINE PHOSPHATASE 369 u/l (38-126); BILIRUBIN, TOTAL 0.2 mg/dL (0.0-1.4); BUN 19 mg/dL (7-17); BUN/CREATININE RATIO 23 (12-20 (CALC)); CHLORIDE 115 mmol/l (95-108); CREATININE 0.9 mg/dL (0.5-1.0); GFR > 60 ML/MIN (>=60 (CALC)); GFR FOR AFR.AMER. > 60 ML/MIN (>=60 (CALC)); POTASSIUM 4.3 mmol/l (3.5-5.1); SGOT/AST 31 u/l (14-36); SODIUM 140 mmol/l (137-146); TOTAL PROTEIN 7.5 g/dL (6.3-8.2)
[2020-02-16 05:55] LABS: ANION GAP 12 (6-22 (CALC)); CARBON DIOXIDE 17 mmol/l (22-30)
[2020-02-16 05:59] LABS: HEMOGLOBIN 6.7 g/dl (12.0-16.0)
--- NOTE | 2020-02-16 06:37 | NUR ---
PATIENT RESTING IN BED-MEDICATED WITH DILAUDID 2MG IVP FOR C/O ABD PAIN. RECIEVED CALL FROM ED IN LAB-HGB 6.7-RESULTS CALLED TO MICHELLE SOSA APRN AND NEW ORDER FOR TRANSFUSION OBTAINED. ORDER ENTERED AND LAB CALLED WITH ORDER. WILL CONT TO MONITOR,
--- NOTE | 2020-02-16 07:37 | NUR ---
PRELIMINARY BLOOD CULTURE RESULTS CALLED TO MICHELLE BAHENAP NO CHANGES NEEDED AT THIS TIME.
--- NOTE | 2020-02-16 07:59 | NUR ---
RECEIVED REPORT FROM ANJUM SOLIS. PT RESTING IN SEMI FOWLERS POSITION UPON ENTERING ROOM. INTRODUCED SELF TO PT AND DISCUSSED POC. PT IS A/O X3. ASSESSMENT AND VITALS COMPLETED. BP 97/61, HE 67, O2 98% ON ROOM AIR. RESPIRATIONS ARE EVEN AND UNLABORED WITH NO DISTERSS NOTED. LUNG SOUND SARE CLEAR. HEART RHYTHM IS NORMAL WITH TELE MONITORING IN PLACE. BOWEL SOUNDS ARE ACTIVE IN ALL QUADRANTS. COLOSTOMY BAG IN PLACE. LOOSE BROWN STOOL NOTED. PT IS SELF CARE WITH COLOSTOMY BAG. #20G IN LAC RUNNING WITH IVF PER ORDER, SITE APPEARS EHALTHY AND PATENT. PT REFUSED CHANGING OF IV AT THIS TIME. DRESSING TO RIGHT UPPER QUADRANT AND LEFT LOWER QUADRANTIS CDI AT THIS TIME. JOSE CRUZ DRAIN IN RIGHT LOWER QUADRANT INPLACE, 10 CC OF BLOOD OUTPUT NOTED. PT COMPLAINS OF 9/10 PAIN. SCHEDULE CLERK INFORMED PT THAT PAIN MEDICATION WAS UNAVAILBE AT THIS TIME DUE TO LOW BLOOD PRESSURE. PT DENEIS OF ANY NEEDS AT THIS TIME. ALL SAFETY PRECAUTIONS ARE IN PLACE WIHT CALL LIGHT IN REACH. WILL CONTINUE TO MONITOR
--- NOTE | 2020-02-16 08:35 | NUR ---
DR MARQUEZ AT BEDSIDE
--- NOTE | 2020-02-16 12:00 | NUR ---
ATTEMPTED TO STARTED NEW IV FOR BLOOD INFUSION, UNSUCCESSFUL X2. PT TOLERATED WELL. ADDITIONAL NURSE TO TRY.
--- NOTE | 2020-02-16 12:07 | NUR ---
PIPO ATTEMPTED TO START NEW IV, UNSUCCESSFUL X2. EXSITING #20G IN [facility] TO BE USED FOR BLOOD INFUSION. ALL SAFETY PRECAUTIONS ARE IN PLACE WITH CALL LIGHT IN REACH. WILL CONTINUE TO MONITOR
--- NOTE | 2020-02-16 12:30 | NUR ---
DR JOHNSON AT BEDSIDE
--- NOTE | 2020-02-16 12:44 | NUR ---
BP RESUTLING IN , PT REQUEST PERCOCET FOR PAIN 11/09 AT THIS TIME. APPROVAL BY URIEL CROSS.
--- NOTE | 2020-02-16 13:05 | NUR ---
FIRST UNIT OF BLOOD STARTED AND SPIKE BY IRMA DANIEL. RESPITAIONS REMAINS EVEN AND UNLABORED ON ROOM AIR. PT EDUCATED ON TRANSFUSION REACTIONS. PT VERBALIZED UNDERSTANDING. BLOOD INFUSING WITH EASE IN #20G IN [facility], SITE APPEARS HEALTHY AND PATENT. [employer] TO REMAIN WITH PT FOR FIRST 25 MINUTES. ALL SFAETY PRECAUTIONS ARE IN PLACE WITH CALL LIGHT IN REACH. WILL CONTINUE TO MONITOR
--- NOTE | 2020-02-16 13:22 | NUR ---
VITALS OBTAINED. RESPIRATIONS REMAINS EVEN ADN UNLABORED ON ROOM AIR. PT DENIES OF TRANSFUSION REACTION. PT RE-EDUCATED. PT VERBALIZED UNDERSTANDING. BLOOD INFUSING WITH EASE, SITE APPEARS HEALTHY AND PATENT. ALL SFAETY PRECAUTIONS ARE IN PLACE WIHT CALL LIGHT IN REACH. WILL CONTINUE TO MONITOR
--- NOTE | 2020-02-16 14:59 | NUR ---
FIRST UNIT OF BLOOD COMPLETED. VITALS OBTAINED. PT DENIES ANY S/S OF REACTIONS. PT RE-EDUCATED ON S/S OF TRANSFUSION REACTION. PT VERBLIZED UNDERSTANDING. SECOND UNIT TO BE ADMINISTERED. ALL SAFETY PRECAUTIONS ARE IN PLACE WITH CALL LIGHT IN REACH. WILL CONTINUE TO MONITOR
[2020-02-16 15:31] LABS: HEMATOCRIT 26.2 % (37.0-47.0)
--- NOTE | 2020-02-16 15:32 | NUR ---
PT COMPLAINS OF 10/10 PAIN IN ABD. APPROVAL FROM JEANETH CROSSRP TO ADMINISTERED ORDERED DILAUDID FOR PAIN. PT EDUCATED ON NOT BEING ABLE TO BE DISCHARGED ON DILAUDID. PT STATED "I JUST HAD SURGERY HOME AM I SUPPOSE TO DEAL WITH THIS MUCH PAIN." RESPIRATIONS REMAINS EVEN AND UNLABORED ON ROOM AIR. ALL SAFETY PRECAUTIONS ARE IN PLACE WIHT CALL LIGHT IN REACH. WILL CONTINUE TO MONITOR
--- NOTE | 2020-02-16 15:38 | NUR ---
JOSE CRUZ DRAINED EMPTIED. JOSE CRUZ 1 90CC BALLARD OUPUT. JOSE CRUZ 2 10CC BALLARD OUTPUT. BULBS APPLIED RESUCTION. DRESSING REMAINS CDI AT THIS TIME. RESPIRATIONS ARE EVEN AND UNLABORED.IVF INFUSING PER ORDER, SITE APPEARS HEALTHY AND PATENT PT DENIES ANY NEED SAT THIS TIME. ALL SAFETY PRECAUTIONS AR EIN PLACE WIHT CALL LIGHT IN REACH. WILL CONTINUE TO MONITOR
--- NOTE | 2020-02-16 15:57 | NUR ---
SECOND UNIT OF BLOOD SPIKED AND STARTED BY IRMA DANIEL. RESPIRATIONS ARE EVEN AND UNLABORED ON ROOM AIR. PT EDUCATED ON S/S OF TRANSFUSION REACTIONS. PT VERABLIZED UNDERSTANDING. PT REAMINS RESTING IN BED WITH EYES CLOSED.PARK WARDEN TO REMAIN WITH PT FOR FIRST 15 MINUTES. ALL SFAETY PRECAUTIONS AR EIN PLACE WIHT CALL LIGHT IN REACH. WILL CONTINUE TO MONITOR
--- NOTE | 2020-02-16 16:02 | NUR ---
PT WAKENED FROM SLEEP TO REASSESS PAIN. PT STATES PAIN IS 8/10
--- NOTE | 2020-02-16 16:12 | NUR ---
FIRST 15 MIU=NUTES COMPLETED. VITALS OBATINED. RESPIRATIONS REMAINS EVEN AND UNLABORED. PT DENIES ANY S/S OF TRANSFUSION REACTIONS. PT RE-EDUACTED. ALL SAFTEY PRECAUTIONS REMAINS IN PLACE WIHT CALL LIGHT IN REACH. WILL CONTINUE TO MONITOR
--- NOTE | 2020-02-16 18:42 | NUR ---
SECOND UNIT OF BLOOD COMPLETED. RESPIRATIONS REMAINS EVEN AND UNLABORED. PT DENEIS ANY S/S OF REACTIONS.
--- NOTE | 2020-02-16 20:04 | NUR ---
PHYSICAL ASSESMENT COMPLETE. PT CURRENTLY C/O OF PAIN OR DISCOMFORT AND ANXIETY. PAIN MEDICATION GIVEN RECENTLY. ADMISTERED AXIETY MEDICATION TO COPE WITH ANXIETY AND FEAR. SCHEDULED MEDICATIONS AND PRN MEDICATION ADMINISTERED, SEE E-MAR. PT DENIES ANY NEEDS AT THIS TIME. PLAN OF CARE REVIEWED, PT DENIES QUESTIONS, VERBALIZES UNDERSTANDING. ITEMS WITHIN REACH, BED LOCKED IN LOW POSITION W/ BEDRAILS UP X2. CALL CUEVAS WITHIN REACH, AGREES TO CALL PRN.
--- NOTE | 2020-02-16 21:45 | NUR ---
CHANGED PTS ABDOMINAL DRESSING. REMOVED OLD DRESSING. CLEANED WOUND/STAPLED INCISION WITH SODIUM CHLORIDE SOLUTION. REAPPLIEED DRY 4X4 GAUZE OVER INCISION SITES. COVERED WITH ABDOMINAL PADS AND SEALED WITH 2" PAPER TAPE. SIGN AND DATED. PT TOLERATED PROCEDURE WELL WITH NO C/O OF PAIN OR DISCOMFORT. WILL CONTINUE TO MONITOR.
[2020-02-17 00:20] VITALS: BP 137/76
--- NOTE | 2020-02-17 00:40 | NUR ---
PT LAYING IN BED WITH EYES CLOSED, APPEARS TO BE SLEEPING, APPEARS COMFORTABLE AND IN NO DISTRESS. RESPIRATIONS REGULAR AND UNLABORED. ITEMS REMAIN WITHIN REACH, CALL CUEVAS REMAINS WITHIN REACH. BED REMAINS LOCKED AND IN LOW POSITION WITH BEDRAILS UP X2. WILL CONTINUE TO MONITOR.
--- NOTE | 2020-02-17 04:16 | NUR ---
PT RESTING IN BED, NO S/S OF DISTRESS AT THIS TIME. SAFETY PRECAUTIONS IN PLACE. WILL CONTINUE TO MONITOR.
[2020-02-17 04:39] VITALS: BP 137/68
[2020-02-17 06:13] LABS: HEMATOCRIT 28.1 % (37.0-47.0); HEMOGLOBIN 8.7 g/dl (12.0-16.0); MEAN CELL VOLUME 85.4 fL CALC (80.0-100.0); MEAN CORPUSCULAR HGB 26.4 pG CALC (26.0-32.0); RED BLOOD COUNT 3.29 mill/uL (4.20-5.60); RED CELL DISTRI WIDTH 16.3 % (11.5-15.5)
[2020-02-17 06:28] LABS: ALBUMIN 2.7 g/dL (3.2-5.0); ALKALINE PHOSPHATASE 446 u/l (38-126); ANION GAP 10 (6-22 (CALC)); BUN 12 mg/dL (7-17); BUN/CREATININE RATIO 15 (12-20 (CALC)); CARBON DIOXIDE 17 mmol/l (22-30); CHLORIDE 115 mmol/l (95-108); CREATININE 0.8 mg/dL (0.5-1.0); GFR > 60 ML/MIN (>=60 (CALC)); GFR FOR AFR.AMER. > 60 ML/MIN (>=60 (CALC)); POTASSIUM 4.1 mmol/l (3.5-5.1); SGOT/AST 41 u/l (14-36); SODIUM 138 mmol/l (137-146)
[2020-02-17 06:31] LABS: BILIRUBIN, TOTAL 0.6 mg/dL (0.0-1.4)
[2020-02-17 08:04] VITALS: BP 144/70
--- NOTE | 2020-02-17 08:04 | NUR ---
RECIEVED REPORT FROM IRMA BENAVIDES. PT RESTING IN SEMI FOWLERS PPOSITION UPON ENTERING ROOM. INTRODUCED SELF TO PT AND DISCUSSED POC. PT IS A/O X3. ASSESSMENT AND VITALS COMPLETED. BP 144/70, HR 83, O2 97% ON ROOM AIR. RESPIRAITONS ARE EVEN AND UNALBROED. HEART RHYTHM IS BOWEL. BOWEL SOUNDS ARE ACTIVE. COLOSTOMY BAG IN PLACE, PT IS SELF CARING. RADIAL AND PEDAL PULSES ARE STRONG WITH NORMAL CAPILLARY REFILL. #20G EMS IN LAC RUNNING WITH IVF PER ORDER, SITE APPEARS HEALTHY AND PATENT. MIDLINE DRESSING CDI AT THIS TIME. PT COMPLAINSOF 10/10 PAIN, PERCOCET TO BE ADMINISTERED. PT DENEIS OF ANY OTHER PAINS OR DISCOMFORTS. ALL SAFETY PRECAUTIONS ARE IN PLACE WIHT CALL LIGHT IN REACH. WILL CONTINUE TO MONITOR
--- NOTE | 2020-02-17 08:58 | NUR ---
DR MARQUEZ AT BEDSIDE
--- NOTE | 2020-02-17 10:52 | NUR ---
PT UP TO CHAIR AFTER MUCH CONVINCING. PILLOWS AND BLANKETS PROVIDED. PT TOLERATING WELL.
[2020-02-17 10:55] VITALS: BP 126/64
--- NOTE | 2020-02-17 12:58 | NUR ---
PT RESTING IN SEMI FOWLERS POSITION. REPSIRAITONS ARE EVEN AND UNLABROED ON ROOM AIR. COLOSTOMY BAG IN PLACE. IVF INFUSING PER ORDER, SITE APPEARS HEALTHY AND PATENT. REASSESSMENT OF PAIN RESUTLING IN 10/09. PT DENIES ANY NEEDS AT THIS TIME. ALL SAFETY PRECAUTIONS ARE IN PLACE WITH CALL LIGHT IN REACH. WILL CONTINUE TO MONITOR
[2020-02-17 14:50] VITALS: BP 123/69
--- NOTE | 2020-02-17 16:49 | NUR ---
PT SLEEPING IN SEMI FOWLERS POSITION. RESPIRATIONS ARE EVEN AND UNLABORE DON ROOM AIR IWTH NO DISTRESS NOTED.IVF INFUSING PER ORDER, SITE APPEARS HEALTHY AND PATENT. NO SIGNS OF ANY PAINS OR DISCOMFORTS. ALL SAFETY PRECAUTIONSA RE IN PLACE WIHT CALL LIGHT IN REACH. WILL CONTINUE TO MONITOR
--- NOTE | 2020-02-17 17:23 | NUR ---
ABD DRESSING COMPLETED AT THIS TIME. ABD PADS AND TAPE APPLIED. 50CC OF BLOODY OUTPUT FROM JOSE CRUZ DRAIN. PT TOLERATED WELL. PT COMPLAINS OF 9/10 PAIN. PERCOCET ADMINISTERED. ALL SAFETY PRECAUTIONS ARE IN PLACE WITH CALL LIGHT IN REACH. WILL CONTINUE TO MONITOR
[2020-02-17 19:00] VITALS: BP 123/61
--- NOTE | 2020-02-17 19:44 | NUR ---
PT MEDICATED ORDERS PROVIDE AND ASSESSMENT COMPLETED AT THIS TIME. NO S/O DISTRESS NOTED. COLOSTOMY HAS MODERATE AMOUNT OF LIQUID APPEARING BROWN STOOL IN IT, I OFFERED TO ASSIST HER IN CHANGING. PT DENIED NEED FOR ASSISTANCE. PT DRESSING TO ABD CDI. ACTIVE ABD SOUNDS AT THIS TIME. PT PROVIDED WITH BRANDI PADS PER REQUEST AND MESH UNDERWEAR AND ASSISTED TO RESTROOM.
--- NOTE | 2020-02-17 21:32 | NUR ---
2131-PT RANG CALL LIGHT AND ASKED FOR PAIN MEDICATION. PT PAIN LEVEL 9 OUT OF 10. PT MEDICATED PER POLICY. PT TOLERATED MANUFACTURING TEACHER WELL, NO ASPIRATION. NO S/S OF DISTRESS. BED LOW AND LOCKED. CALL LIGHT AND PHONE WITHIN REACH. WILL REASSESS PT TO VERIFY PAIN MEDICATION EFFECTIVE.
--- NOTE | 2020-02-17 23:40 | NUR ---
PT MEDICATED FOR ANXIETY AND ANTIBIOTIC THERAPY, PT APPEARS CALM WATCHING TV. LIGHTS ARE DOWN LOW, BUT ASKED FOR ATIVAN, PROVIDED PER ORDERS ALLOW. PT WAS ENCOURAGED TO CALL ANY OTHER NEEDS ARISE.
[2020-02-18] VITALS: BP 105/53
--- NOTE | 2020-02-18 03:58 | NUR ---
PT MEDICATED FOR PAIN 10/10 ON PAIN SCALE. PT IS ASKING FOR ATIVAN ALSO, WORDS ARE GROGGY AT THIS TIME. DRESSING CDI TO ABD INCISIONAL DRESSING. JOSE CRUZ DRAIN EMPTIED AT 60CC OF BLOODY DRAINAGE. CALL LIGHT IN HAND.
[2020-02-18 04:00] VITALS: BP 126/70
[2020-02-18 07:43] VITALS: BP 118/62
--- NOTE | 2020-02-18 07:43 | NUR ---
PT RESTING IN BED, NO SIGNS OF DISTRESS NOTED, RESP EVEN AND UNLABORED. PT ALERT AND ORIENTED X3, NOTED DRESSING TO ABD CDI, JOSE CRUZ X1, COLOSTOMY LLQ NOTED LIQUID BROWN STOOL. DISCUSSED POC, PT C/O PAIN 11/09 OFFERED PT PERCOCET, PT STATES SHE WANTS SOMETHING STRONGER BECAUSE PERCOCET IS NOT WORKING. INFORMED PT THAT SHE HAS DILAUDID ON APR, PT PREFFERED DILAUDID. ASSESSMENT COMPLETED PT MEDICATED PER APR. CALL LIGHT IN REACH,CONTINUE TO MONITOR.
[2020-02-18] MEDS ORDERED: OXYCODO-APAP1 TA2 PO (11:44)
[2020-02-18 11:51] VITALS: BP 151/82
--- NOTE | 2020-02-18 11:55 | NUR ---
PT MEDICATED FOR PAIN, CALL LIGHT IN REACH,CONTINUE TO MONITOR.
--- NOTE | 2020-02-18 13:22 | NUR ---
JOSE CRUZ DRAIN REMOVED, CATHETER INTACT, PT TOLERATED WELL. DRESSING TO ABD CHANGED. CALL LIGHT IN REACH,CONTINUE TO MONITOR.
--- NOTE | 2020-02-18 15:00 | NUR ---
Discharge instructions given. Patient verbalizes understanding of same. Discharged in stable condition via Wheelchair to Home with Taxi . All belongings sent with pt.
== END 2020-02-18 15:00 | disposition home health service (06) | DRG 415 ==
LOC: ED 15:57 → ED-I 20:50 → ED 21:08 → MS2 21:09
PROVIDERS: Family Medicine; Nurse Practitioner Family; ADMIT Internal Medicine; ATTEND Internal Medicine
PROC: 0FT40ZZ Resection of Gallbladder, Open Approach (ICD-10-PCS; principal; 2020-02-14)
PROC: 0FJ44ZZ Inspection of Gallbladder, Percutaneous Endoscopic Approach (ICD-10-PCS; 2020-02-14)
PROC: 07BJ0ZX Excision of Left Inguinal Lymphatic, Open Approach, Diagnostic (ICD-10-PCS; 2020-02-14)
PROC: 30233N1 Transfusion of Nonautologous Red Blood Cells into Peripheral Vein, Percutaneous Approach (ICD-10-PCS; 2020-02-17)
DX: K80.12 Calculus of gallbladder with acute and chronic cholecystitis without obstruction (principal); K56.600 Partial intestinal obstruction, unspecified as to cause; K50.918 Crohn's disease, unspecified, with other complication; L02.31 Cutaneous abscess of buttock; K82.8 Other specified diseases of gallbladder; R59.0 Localized enlarged lymph nodes; K60.4 Rectal fistula; E87.6 Hypokalemia; E83.42 Hypomagnesemia; E86.0 Dehydration; D64.9 Anemia, unspecified; G89.29 Other chronic pain; M41.9 Scoliosis, unspecified; F17.210 Nicotine dependence, cigarettes, uncomplicated; Z20.828 Contact with and (suspected) exposure to other viral communicable diseases; Z79.899 Other long term (current) drug therapy; Z93.3 Colostomy status
CPT/HCPCS: J0131; J1100; J1610; J1650; J2060; J3475; P9016; Q9967

== ENCOUNTER 2020-03-03 18:30 | Emergency (ER) | payer MEDICARE ==
[~2020-03-03] VITALS: Ht 177.8 cm; Wt 56.8 kg
[~2020-03-03 18:30] MED LIST changes: +OXYCODO-APAP1 TA2 PO
[2020-03-03] MEDS ORDERED: PROTONIX40 M2 PO (18:57)
[2020-03-03 19:36] LABS: HEMATOCRIT 26.9 % (37.0-47.0); HEMOGLOBIN 8.1 g/dl (12.0-16.0); IMMATURE GRANULOCYTES 0.4 % (0.0-5.0); MEAN CELL VOLUME 87.1 fL CALC (80.0-100.0); MEAN CORPUSCULAR HGB 26.2 pG CALC (26.0-32.0); MEAN CORPUSCULAR HGB CONC 30.1 g/dL CAL (32.0-36.0); NEUT# 4.63 thou/uL (2.00-7.15); RED BLOOD COUNT 3.09 mill/uL (4.20-5.60); RED CELL DISTRI WIDTH 18.5 % (11.5-15.5)
[2020-03-03 19:48] LABS: ALBUMIN 3.2 g/dL (3.2-5.0); ALKALINE PHOSPHATASE 324 u/l (38-126); ANION GAP 10 (6-22 (CALC)); BILIRUBIN, TOTAL 0.7 mg/dL (0.0-1.4); BUN 21 mg/dL (7-17); BUN/CREATININE RATIO 23 (12-20 (CALC)); CHLORIDE 112 mmol/l (95-108); CREATININE 0.9 mg/dL (0.5-1.0); GFR > 60 ML/MIN (>=60 (CALC)); GFR FOR AFR.AMER. > 60 ML/MIN (>=60 (CALC)); LIPASE 199 u/l (23-300); POTASSIUM 4.2 mmol/l (3.5-5.1); SGOT/AST 31 u/l (14-36); SODIUM 139 mmol/l (137-146); TOTAL PROTEIN 8.2 g/dL (6.3-8.2)
[2020-03-03 19:49] LABS: CARBON DIOXIDE 21 mmol/l (22-30)
[2020-03-03 20:04] LABS: URINE BILIRUBIN - DIPSTICK NEGATIVE (NEGATIVE); URINE BLOOD DIPSTICK NEGATIVE (NEGATIVE); URINE COLOR YELLOW; URINE GLUCOSE - DIPSTICK NEGATIVE (NEGATIVE); URINE KETONE NEGATIVE (NEGATIVE); URINE LEUK ESTERASE TRACE (NEGATIVE); URINE NITRITE - DIPSTICK NEGATIVE (Negative); URINE PH 6.5 (4.5-8.0); URINE PROTEIN - DIPSTICK NEGATIVE (NEG-TRACE); URINE UROBILINOGEN - DIPSTICK 0.2 E.U./dL (0.2)
[2020-03-03] MEDS ORDERED: TRAMADOL HCL50 MG PO (21:50)
[2020-03-03 23:00] VITALS: BP 125/69
[2020-03-04] MEDS ORDERED: BACTRIM DS1 TAB PO (04:11)
== END 2020-03-03 23:00 | disposition home or self-care (01) ==
LOC: ED 18:30
DX: G89.18 Other acute postprocedural pain (principal); D64.9 Anemia, unspecified; F41.9 Anxiety disorder, unspecified; K51.90 Ulcerative colitis, unspecified, without complications; F32.9 Major depressive disorder, single episode, unspecified; F17.210 Nicotine dependence, cigarettes, uncomplicated; Z90.49 Acquired absence of other specified parts of digestive tract; Z93.3 Colostomy status
CPT/HCPCS: Q9967

== ENCOUNTER 2020-03-04 03:19 | Emergency (ER) | payer MEDICARE ==
[~2020-03-04] VITALS: Ht 177.8 cm; Wt 90.0 kg
[2020-03-04 04:11] VITALS: BP 120/67
[2020-03-04] MEDS ORDERED: BACTRIM DS1 TAB PO (04:11)
== END 2020-03-04 07:34 | disposition home or self-care (01) ==
LOC: ED 03:19
DX: L89.309 Pressure ulcer of unspecified buttock, unspecified stage (principal); K60.4 Rectal fistula; K51.90 Ulcerative colitis, unspecified, without complications; F41.9 Anxiety disorder, unspecified; F32.9 Major depressive disorder, single episode, unspecified; F17.200 Nicotine dependence, unspecified, uncomplicated; Z93.3 Colostomy status

== ENCOUNTER 2020-03-28 16:33 | Emergency (ER) | payer MEDICARE ==
[~2020-03-28] VITALS: Ht 177.8 cm; Wt 65.9 kg
[2020-03-28 17:24] LABS: HEMATOCRIT 25.1 % (37.0-47.0); HEMOGLOBIN 7.7 g/dl (12.0-16.0); IMMATURE GRANULOCYTES 0.4 % (0.0-5.0); MEAN CELL VOLUME 84.2 fL CALC (80.0-100.0); MEAN CORPUSCULAR HGB 25.8 pG CALC (26.0-32.0); MEAN CORPUSCULAR HGB CONC 30.7 g/dL CAL (32.0-36.0); NEUT# 8.82 thou/uL (2.00-7.15); RED BLOOD COUNT 2.98 mill/uL (4.20-5.60); RED CELL DISTRI WIDTH 18.6 % (11.5-15.5)
[2020-03-28 17:44] LABS: ALBUMIN 3.5 g/dL (3.2-5.0); BUN 22 mg/dL (7-17); BUN/CREATININE RATIO 29 (12-20 (CALC)); CARBON DIOXIDE 17 mmol/l (22-30); CHLORIDE 106 mmol/l (95-108); CREATININE 0.8 mg/dL (0.5-1.0); GFR > 60 ML/MIN (>=60 (CALC)); GFR FOR AFR.AMER. > 60 ML/MIN (>=60 (CALC)); LIPASE 67 u/l (23-300); SODIUM 134 mmol/l (137-146); TOTAL PROTEIN 8.4 g/dL (6.3-8.2)
[2020-03-28 17:45] LABS: ANION GAP 14 (6-22 (CALC)); BILIRUBIN, TOTAL 0.4 mg/dL (0.0-1.4); POTASSIUM 3.4 mmol/l (3.5-5.1); SGOT/AST 94 u/l (14-36)
[2020-03-28 17:46] LABS: ALKALINE PHOSPHATASE 567 u/l (38-126)
[2020-03-28 18:34] LABS: URINE BILIRUBIN - DIPSTICK NEGATIVE (NEGATIVE); URINE BLOOD DIPSTICK NEGATIVE (NEGATIVE); URINE COLOR YELLOW; URINE GLUCOSE - DIPSTICK NEGATIVE (NEGATIVE); URINE KETONE NEGATIVE (NEGATIVE); URINE LEUK ESTERASE TRACE (NEGATIVE); URINE NITRITE - DIPSTICK NEGATIVE (Negative); URINE PROTEIN - DIPSTICK NEGATIVE (NEG-TRACE); URINE UROBILINOGEN - DIPSTICK 0.2 E.U./dL (0.2)
[2020-03-28 19:20] VITALS: BP 112/60
[2020-03-28] MEDS ORDERED: PROTONIX40 M2 PO (19:47)
[2020-03-28] MEDS ORDERED: TRAMADOL HYDROC50 MG PO (19:47)
== END 2020-03-28 20:04 | disposition home or self-care (01) ==
LOC: ED 16:33
PROVIDERS: Family Medicine
DX: K29.81 Duodenitis with bleeding (principal); F41.9 Anxiety disorder, unspecified; F32.9 Major depressive disorder, single episode, unspecified; K50.90 Crohn's disease, unspecified, without complications; F17.200 Nicotine dependence, unspecified, uncomplicated; Z93.3 Colostomy status; Z20.822 Contact with and (suspected) exposure to COVID-19; Z90.49 Acquired absence of other specified parts of digestive tract
CPT/HCPCS: Q9967

== ENCOUNTER 2020-10-27 09:08 | Observation (INO) | payer MEDICARE ==
[~2020-10-27] VITALS: Ht 177.8 cm; Wt 67.0 kg
[~2020-10-27 09:08] MED LIST changes: +B121000 MC1 PO; +BUDESONIDE ER9 MG PO; +COLESTID1 GM PO; +PERCOCET1 TA4 PO
--- NOTE | 2020-10-27 09:15 | NUR ---
PATIENT TO ROOM VIA EMS AND PHYSICIAN NOTIFIED OF PATIENT STATUS
[2020-10-27 11:36] LABS: IMMATURE GRANULOCYTES 0.6 % (0.0-5.0); MEAN CORPUSCULAR HGB 28.9 pG CALC (26.0-32.0); MEAN CORPUSCULAR HGB CONC 31.4 g/dL CAL (32.0-36.0); NEUT# 13.22 thou/uL (2.00-7.15); RED BLOOD COUNT 3.57 mill/uL (4.20-5.60); RED CELL DISTRI WIDTH 15.6 % (11.5-15.5)
[2020-10-27 11:38] LABS: URINE BILIRUBIN - DIPSTICK NEGATIVE (NEGATIVE); URINE BLOOD DIPSTICK MODERATE (NEGATIVE); URINE COLOR YELLOW; URINE GLUCOSE - DIPSTICK NEGATIVE (NEGATIVE); URINE KETONE TRACE mg/dL (NEGATIVE); URINE PH 6.5 (4.5-8.0); URINE PROTEIN - DIPSTICK 30 mg/dL (NEG-TRACE); URINE SPECIFIC GRAVITY 1.025; URINE UROBILINOGEN - DIPSTICK 0.2 E.U./dL (0.2)
[2020-10-27 11:41] LABS: URINE LEUK ESTERASE MODERATE (NEGATIVE); URINE NITRITE - DIPSTICK NEGATIVE (Negative)
[2020-10-27 11:57] LABS: ALBUMIN 3.5 g/dL (3.2-5.0); ALKALINE PHOSPHATASE 522 u/l (38-126); ANION GAP 13 (6-22 (CALC)); BILIRUBIN, TOTAL 0.4 mg/dL (0.0-1.4); BUN 22 mg/dL (7-17); BUN/CREATININE RATIO 22 (12-20 (CALC)); CARBON DIOXIDE 20 mmol/l (22-30); CHLORIDE 105 mmol/l (95-108); GFR 57 ML/MIN (>=60 (CALC)); GFR FOR AFR.AMER. > 60 ML/MIN (>=60 (CALC)); POTASSIUM 3.2 mmol/l (3.5-5.1); SGOT/AST 52 u/l (14-36); SODIUM 135 mmol/l (137-146); TOTAL PROTEIN 8.2 g/dL (6.3-8.2)
--- NOTE | 2020-10-27 12:00 | NUR ---
PT RESTING COMFORTABLY
[2020-10-27 12:01] LABS: URINE SQUAMOUS EPITHELIAL CELL FEW EPI/hpf (0-FEW); URINE WBC >100 WBC/hpf (0-5)
[2020-10-27 12:22] LABS: HEMATOCRIT 32.8 % (37.0-47.0); HEMOGLOBIN 10.3 g/dl (12.0-16.0); MEAN CELL VOLUME 91.9 fL CALC (80.0-100.0)
--- NOTE | 2020-10-27 14:00 | NUR ---
PT AWAITING RESULTS
--- NOTE | 2020-10-27 16:18 | NUR ---
PT AWAITING BED ASSIGNMENT
--- NOTE | 2020-10-27 16:35 | NUR ---
60 YEAR OLD FEMALE ADMITTED TO FLOOR VIA STRETCHER ACCOMPANIED BY ER STAFF WITH DIAGNOSIS OF PELVIC FRACTURE (2) FOLLWING A FALL, HIP PAIN, AND UTI. PATIENT IS ALERT, VERBAL, ABLE TO MAKE NEEDS KNOWN. ABLE TO TOLERATE MEDS WELL WHOLE. PIV SITE PATENT TO LEFT AC AREA--FLUSHES WELL--SITE UNREMARKABLE. TO RECEIVE NS @ 80ML/HR WITHOUT DIFFICULTY--TOLERATING FLUIDS WELL. TO RECEIVE IV ABT THERAPY RELATED TO UTI--AFEBRILE AT THIS TIME. NEGATIVE FOR COVID, FLU, AND STREP. CONT OF BLADDER--USING BEDPAN AT THIS TIME--UNABLE TO AMBULATE AND BEAR WEIGHT. COLOSTOMY PATENT TO LLQ--STOMA BEEFY RED AND DRAINING PASTY ORANGE/BROWN STOOL TO BAG WITHOUT ANY DIFFICULTY--HX OF CHRONS DISEASE. NKDA. SKIN ASSESSMENT COMPLETED--NOTED TO HAVE BRUSING TO LEVAR KNEES AND CHIN FROM FALL ALSO HAS 5 AREAS TO BOTTOM THAT APPEAR TO BE FISTULAS THAT ARE DRAINING A SMALL AMOUNT OF SEROSANGUINEOUS FLUID FROM THEM---SHE STATES THIS IS CHRONIC AND SHE HAS HAD THEM FOR YEARS. PATIENT ALSO HAS QUITE A BIT OF JEWLERY THAT SHE DID NOT WISH TO HAVE TAKEN AND LOCKED IN OUR SAFE--5 BRACELETS ON HER RIGHT ARM, AND ANKLET ON HER RIGHT LEG, AND 2 RINGS ON HER RIGHT HAND--ONE ON HER INDEX FINGER AND ONE ON THE MIDDLE FINGER. COMPLAINS OF 8/10 PAIN TO HER PELVIS AT TIME OF ADMISSION--MEDICATED WITH PRN PERCOCET--PENDING RESULTS. TO RECEIVE PT FOR STRENGTHENING. ORIENTED TO ROOM--C/L WITHIN REACH--WILL CONT TO MONITOR FOR ANY FURTHER CHANGES.
[2020-10-27 16:40] VITALS: BP 122/67
[2020-10-27 19:00] VITALS: BP 102/60
--- NOTE | 2020-10-27 20:46 | NUR ---
PT ASSESSMENT COMPLETED AT THIS TIME AND PT MEDICATED ORDERS PROVIDE AND FOR PAIN 8/10 ON PAIN SCALE. PT POSITIONED AT THIS TIME FOR COMFORT. PT IS ABLE TO LIFT AND POSITION HERSELF. BRUISING VISIBLE TO R.LOWER CHIN AREA, SHE REPORTED THAT THIS WAS FROM PREVIOUS FALL A WEEK AGO.
--- NOTE | 2020-10-27 22:30 | NUR ---
PT ASSISTED TO BEDPAN AND OFF. PROVIDED BRANDI-CARE, SHE REFUSES TO BE CLEANED WITH WARM SOAPY WASHCLOTHS, DEMANDED BABY WIPES FOR COMFORT. I EXPLAINED TO HER THAT SHE NEEDS MORE CLEANING THAN THIS WILL PROVIDED, REFUSED, STATING IT HURTS TOO BAD. PICTURES OF WOUNDS TO LEVAR BUTTOCKS. BLOODY AND WHITE THIN MILKY DRAINAGE IS COMING FROM WOUNDS, PT REPORTS THAT IT IS "FISTULAS" THAT SHE HAS "HAD THEM FOR 3 YEARS."
--- NOTE | 2020-10-28 00:34 | NUR ---
PT MEDICATED FOR PAIN 10/10 ON PAIN SCALE. PT POSITIONED ON LEFT SIDE.
--- NOTE | 2020-10-28 02:48 | NUR ---
PT MEDICATED FOR PAIN REPORTED 10/10 ON PAIN SCALE. I ASKED IF THE PERCOCET DID NOT HELP, SHE REPORTED "FOR A LITTLE BIT."
--- NOTE | 2020-10-28 03:51 | NUR ---
PT APPEARS TO BE SLEEPING, NO S/O DISTRESS NOTED. RESP EVEN NON-LABORED.
[2020-10-28 04:15] VITALS: BP 115/68
--- NOTE | 2020-10-28 07:05 | NUR ---
REPORT RECEIVED FROM IRMA ROMERO
--- NOTE | 2020-10-28 07:50 | NUR ---
PT MEDICATED WITH PRN PERCOCET 10MG PO FOR PELVIC PAIN RATING 9/10 ON THE PAIN SCALE,WILL CONTINUE TO MONITOR FOR EFFECTIVENESS
--- NOTE | 2020-10-28 09:00 | NUR ---
PT RESTING IN SEMI FOWLERS POSITION,A&O X3;VS OBTAINED AND ASSESSMENT COMPLETED;PT REPORTS PAIN UNRELEIVED BY PRN PERCOCET, PAIN MEDICATION SCHEDULE DISCUSSED WITH PT AND PT VERBALIZES UNDERSTANDING;RESPIRATIONS EVEN AND UNLABORED ON RA,CLEAR LUNG SOUNDS;ABDOMEN SOFT ON PALPATION AND ACTIVE IN ALL 4 QUADRANTS,COLOSTOMY BAG NOTED TO LEFT UPPER QUADRANT;WEAK PEDAL PULSES;WOUNDS TO COCCYX NOTED WITH WHITE/PURULENT DRAINAGE NOTED, PT REFUSES DRESSING AT THIS TIME;BRUISE ALSO NOTED TO FACE R/T TO FALL GRANTS ASSISTANT;#20G TO LAC INFUSING NS @ 80ML/HR,SITE APPEARS HEALTHY;PT DENIES ANY ADDITIONAL NEEDS AND IS ENCOURAGED TO CALL FOR ASSISTANCE IF NEEDED;FALL PRECAUTIONS IN PLACE WITH BED IN THE LOWEST POSITION AND CALL LIGHT IN REACH;WILL CONTINUE TO MONITOR
[2020-10-28 09:02] VITALS: BP 95/59
[2020-10-28 10:00] VITALS: BP 100/68
--- NOTE | 2020-10-28 10:00 | NUR ---
PT MEDICATED WITH PRN MORPHINE 2MG SLOW IVP FOR PELVIC PAIN RATING 9/10 ON THE PAIN SCALE,WILL CONTINUE TO MONITOR FOR EFFECTIVENESS
--- NOTE | 2020-10-28 11:55 | NUR ---
PT APPEARS TO BE SLEEPING IN SEMI FOWLERS POSITION;RESPIRATIONS EVEN AND UNLABORED ON RA;NO S/S OF DISTRESS NOTED;IV SITE PATENT INFUSING NS WITH EASE;ALL SAFETY PRECAUTIONS IN PLACE WITH BED IN THE LOWEST POSITION AND CALL LIGHT IN REACH;WILL CONTINUE TO MONITOR
--- NOTE | 2020-10-28 12:20 | NUR ---
AT BEDSIDE DISCUSSING POC.
[2020-10-28 13:04] LABS: HEMATOCRIT 29.9 % (37.0-47.0); HEMOGLOBIN 9.2 g/dl (12.0-16.0); IMMATURE GRANULOCYTES 0.4 % (0.0-5.0); MEAN CELL VOLUME 93.7 fL CALC (80.0-100.0); MEAN CORPUSCULAR HGB 28.8 pG CALC (26.0-32.0); MEAN CORPUSCULAR HGB CONC 30.8 g/dL CAL (32.0-36.0); NEUT# 10.01 thou/uL (2.00-7.15); RED BLOOD COUNT 3.19 mill/uL (4.20-5.60); RED CELL DISTRI WIDTH 15.6 % (11.5-15.5)
[2020-10-28 13:46] LABS: ANION GAP 8 (6-22 (CALC)); BUN 17 mg/dL (7-17); BUN/CREATININE RATIO 23 (12-20 (CALC)); CARBON DIOXIDE 22 mmol/l (22-30); CHLORIDE 110 mmol/l (95-108); CREATININE 0.7 mg/dL (0.5-1.0); GFR > 60 ML/MIN (>=60 (CALC)); GFR FOR AFR.AMER. > 60 ML/MIN (>=60 (CALC)); POTASSIUM 3.5 mmol/l (3.5-5.1); SODIUM 136 mmol/l (137-146)
--- NOTE | 2020-10-28 14:00 | NUR ---
WOUND CULTURE OBTAINED AT THIS TIME.PT ALSO MEDICATED WITH PRN MORPHINE 2MG SLOW IVP PER ORDER FOR PELVIC PAIN RATING 10/10 ON THE PAIN SCALE;WILL CONTINUE TO MONITOR FOR EFFECTIVENESS
[2020-10-28] MEDS ORDERED: PROTONIX20 M1 PO (14:28)
[2020-10-28] MEDS ORDERED: CYANOCOBAL1000 MCG/M IM (14:28)
[2020-10-28] MEDS ORDERED: BUSPAR5 MG (14:29)
[2020-10-28 15:00] VITALS: BP 110/61
--- NOTE | 2020-10-28 15:50 | NUR ---
PT APPEARS TO BE SLEEPING IN SEMI FOWLERS POSITION;RESPIRATIONS EVEN AND UNLABORED ON RA;NO S/S OF DISTRESS NOTED; IV SITE PATENT INFUSING NS @ 80ML/HR;ALL SAFETY PRECAUTIONS IN PLACE WITH BED IN THE LOWEST POSITION AND CALL LIGHT IN REACH;WILL CONTINUE TO MONITOR
--- NOTE | 2020-10-28 17:05 | NUR ---
PT MEDICATED WITH PRN DILAUDID 0.5MG SLOW IVP FOR PELVIC PAIN RATING 9/10 ON THE PAIN SCALE,WILL CONTINUE TO MONITOR FOR EFFECTIVENESS
[2020-10-28 18:00] VITALS: BP 105/65
--- NOTE | 2020-10-28 21:13 | NUR ---
PT MEDICATED ORDERS PROVIDE AND ASSESSMENT COMPLETED AT THIS TIME. PT MEDICATED FOR PAIN IN FISTULA'S 9/10 ON PAIN SCALE. PT KEEPS PICKING AT THEM AND PUTTING HER HANDS DOWN IN HER GROIN AND BUTTOCKS AREA. I ADVISED HER NOT TO DO THIS, BUT SHE SAID THEY ITCH AND BOTHER HER. PT MEDICATED FOR PAIN. SHE IS SELF POSITIONING AND CALLS WHEN ASSISTANCE IS NEEDED. PT ALSO ASKED FOR ICECREAM AT THIS TIME/PROVIDED.
--- NOTE | 2020-10-28 23:50 | NUR ---
PT ASSISTED TO BEDPAN AT THIS TIME AND BACK OFF. TUBE DEPATCHER'S IN WITH THE PT.
--- NOTE | 2020-10-29 00:20 | NUR ---
PT MEDICATED FOR PAIN AT THIS TIME. DENIES ANY OTHER NEEDS.
--- NOTE | 2020-10-29 02:10 | NUR ---
PT CALLED WANTING BABY WIPES FOR HER FISTULA'S. I ASSISTED PT CLEANING THEM WITH WARM SOAPY WATER. ASSISTED HER TO REPOSITION AND CLEAN PADS PLACED. PT REFUSES ANY TYPE OF DRESSING OR PAD WITH PANTIES. PT ASKED FOR SNAKE/PROVIDED TURKEY SANDWICH.
--- NOTE | 2020-10-29 03:29 | NUR ---
PT MEDICATED FOR PAIN, SHE STATES THAT SHE "IS BORED AND WANTS ICECREAM." PROVIDED ICECREAM AT THIS TIME. PAIN REPORTED 8/10 ON PAIN SCALE.
[2020-10-29 05:31] VITALS: BP 101/57
[2020-10-29 05:41] LABS: HEMATOCRIT 29.1 % (37.0-47.0); IMMATURE GRANULOCYTES 0.5 % (0.0-5.0); MEAN CELL VOLUME 95.1 fL CALC (80.0-100.0); MEAN CORPUSCULAR HGB 29.4 pG CALC (26.0-32.0); MEAN CORPUSCULAR HGB CONC 30.9 g/dL CAL (32.0-36.0); NEUT# 9.17 thou/uL (2.00-7.15); RED BLOOD COUNT 3.06 mill/uL (4.20-5.60); RED CELL DISTRI WIDTH 15.5 % (11.5-15.5)
[2020-10-29 05:54] LABS: ALKALINE PHOSPHATASE 438 u/l (38-126); ANION GAP 6 (6-22 (CALC)); BUN 12 mg/dL (7-17); BUN/CREATININE RATIO 18 (12-20 (CALC)); CARBON DIOXIDE 23 mmol/l (22-30); CHLORIDE 111 mmol/l (95-108); CREATININE 0.7 mg/dL (0.5-1.0); GFR > 60 ML/MIN (>=60 (CALC)); GFR FOR AFR.AMER. > 60 ML/MIN (>=60 (CALC)); POTASSIUM 4.1 mmol/l (3.5-5.1); SGOT/AST 28 u/l (14-36); SODIUM 136 mmol/l (137-146)
[2020-10-29 06:00] LABS: ALBUMIN 2.5 g/dL (3.2-5.0); BILIRUBIN, TOTAL 0.2 mg/dL (0.0-1.4); TOTAL PROTEIN 6.2 g/dL (6.3-8.2)
--- NOTE | 2020-10-29 06:21 | NUR ---
PT MEDICATED FOR PAIN 7/10 ON PAIN SCALE. PT ALSO ASKED/PROVIDED FOR ICECREAM AT THIS TIME AND MILK. NO S/O DISTRESSES.
[2020-10-29 07:56] VITALS: BP 100/52
--- NOTE | 2020-10-29 08:05 | NUR ---
PT IN BED UPON ENTERING ROOM. ALERT AND ORIENTED. VITALS AND ASSESSMENT DONE. S1 AND S2 HEARD UPON ASCULTATION. BOWELS ACTIVE IN ALL 4 QUADS. SKIN ON BUTT RED, BLOODY AND FISTULAS PRESENT.PT IN PAIN. PT HAS A BRUISE ON CHIN. PT HAS A COLOSTOMY. PTS PEDAL PULSES STRONG BILATERALLY. SKIN WARM AND DRY. IV PATENT AND HEALTHY.
--- NOTE | 2020-10-29 10:13 | NUR ---
PT PUT ON BED TIERNEY. BUTTOCKS CLEANED REALLY WELL BY SHONNA. PT IS IN PAIN. TOLD Kd VALLES.
--- NOTE | 2020-10-29 10:24 | NUR ---
WAITING ON MAXIPIME ANTIBIOTICS TO BE DELIVERED.
--- NOTE | 2020-10-29 12:06 | NUR ---
PT GIVEN DILAUDID 1MG @1206. NO DISTRESS NOTED OTHER THAN PAIN. PT WAS AT AN 8 FOR PAIN. NO OTHER WANTS AT THIS TIME. CALL LIGHT WITHIN REACH.
--- NOTE | 2020-10-29 13:27 | NUR ---
CALLED OR TERRA ANSWERED. LET HER KNOW SHANTANU PRINCE HAD AN CONSENT TO OBTAIN.
--- NOTE | 2020-10-29 14:30 | NUR ---
GOT PT COVID TEST SWAB FOR SURGERY. .
--- NOTE | 2020-10-29 15:02 | NUR ---
GOT A PHONE CALL FROM DR. ISAACS. ABOUT PT FRACTURE. WEIGHT BEARING TOLERATED. NO SURGERY NEEDED.
--- NOTE | 2020-10-29 15:10 | NUR ---
INFORMED CONSENT OBTAINED AT 1510.
[2020-10-29 15:12] VITALS: BP 105/61
[2020-10-29 19:44] VITALS: BP 98/57
--- NOTE | 2020-10-29 19:53 | NUR ---
PATIENT RESTING IN BED AT THIS TIME WATCHING TV. AWAKE ALERT AND ORIENTEDX3. IVF NS PATENT AND INFUSING VIA LAC SITE AT 80CC/HR. PATIENT WITH LARGE BRUISED AREA TO RIGHT CHIN FROM PREVIOUS FALL. COLOSTOMY APPLIANCE INTACT TO ABD AT THIS TIME. PATIENT FOR OR IN AM-NPO AFTER MIDNIGHT. PATIENT VERBALIZES UNDERSTANDING. SAFETY PRECAUTIONS REINFORCED. CALL LIGHT IN REACH. WILL CONT TO MONITOR.
--- NOTE | 2020-10-29 21:15 | NUR ---
PATIENT RESTING IN BED-C/O FISTULA PAIN-9/10 ON PAIN SCALE. MEDICATED WITH DILAUDID 1MG IVP FOR PAIN. HEPARIN HELD FOR OR TOMORROW. IVF PATENT AND INFUSING VIA LAC SITE AT 80CC/HR. PROVIDED WITH SNACKS PER PATIENT REQUEST. CALL LIGHT IN REACH. WILL CONT TO MONITOR.
[2020-10-30] VITALS (9 sets, daily range): BP systolic 97–131; BP diastolic 59–75
--- NOTE | 2020-10-30 00:38 | NUR ---
PATIENT ASSISTED WITH BEDPAN TO VOID. ASSISTED WITH COLOSTOMY CARE-200CC OF THICK LIGHT BROWN STOOL EMPTIED. MEDICATED FOR PAIN WITH DILAUDID 1MG IVP FOR 9/10 PAIN TO BUTTOCKS AND FISTULAS. IVF NS PATENT AND INFUSING VIA LAC IV SITE AT 80CC/HR. NPO FOR OR TOMORROW. SAFETY PRECAUTIONS REINFORCED. CALL LIGHT IN REACH. WILL CONT TO MONITOR.
--- NOTE | 2020-10-30 03:46 | NUR ---
PATIENT RESTING IN BED AT THIS TIME WATCHING TV. C/O SEVERE PAIN TO HER BUTTOCKS/FISTULAS-9/10 ON PAIN SCALE. MEDICATED WITH DILAUDID 1MG IVP ORDERED FOR PAIN. IVF NS PATENT AND INFUSING VIA LAC SITE AT 80CC/HR. SITE REMAINS HEALTHY. NPO FOR OR THIS MORNING. COLOSTOMY APPLIANCE TO LEFT ABD INTACT. CALL LIGHT IN REACH. WILL CONT TO MONITOR.
--- NOTE | 2020-10-30 07:10 | NUR ---
PT IN BED UPON ENTERING ROOM. VITALS AND ASSESSMENT DONE. S1 AND S2 NOTED. BOWEL ACTIVE IN ALL 4 QUADS. SKIN BRUISED. BRUISE ON HER CHIN. BUTTOCKS OOZING FROM FISTULAS. PUCTURE TAKEN ON ADMISSION. PT IS GOING TO SURGERY TODAY FOR THEM. PEDAL PULSES STRONG BILATERALLY. PT MEDICATED WELL. IV PATENT AND HEALTHY. NO OTHER WANTS OR NEEDS AT THIS TIME. CALL LIGHT WITHIN REACH.
[2020-10-30 07:28] LABS: HEMATOCRIT 26.7 % (37.0-47.0); HEMOGLOBIN 8.1 g/dl (12.0-16.0); MEAN CELL VOLUME 96.4 fL CALC (80.0-100.0); MEAN CORPUSCULAR HGB 29.2 pG CALC (26.0-32.0); MEAN CORPUSCULAR HGB CONC 30.3 g/dL CAL (32.0-36.0); RED BLOOD COUNT 2.77 mill/uL (4.20-5.60); RED CELL DISTRI WIDTH 15.8 % (11.5-15.5)
[2020-10-30 07:50] LABS: ANION GAP 9 (6-22 (CALC)); BUN 11 mg/dL (7-17); BUN/CREATININE RATIO 16 (12-20 (CALC)); CARBON DIOXIDE 20 mmol/l (22-30); CHLORIDE 111 mmol/l (95-108); CREATININE 0.7 mg/dL (0.5-1.0); GFR > 60 ML/MIN (>=60 (CALC)); GFR FOR AFR.AMER. > 60 ML/MIN (>=60 (CALC)); SODIUM 135 mmol/l (137-146)
[2020-10-30 08:06] LABS: MAGNESIUM 0.8 mg/dL (1.6-2.3)
--- NOTE | 2020-10-30 09:15 | NUR ---
Attempted treatment this am, pt refused, stated she was going to surgery at 10 am.
--- NOTE | 2020-10-30 10:07 | NUR ---
IV MEDICATIONS LATE BECAUSE SHE IS DOWN AT SURGERY.
--- NOTE | 2020-10-30 12:12 | NUR ---
PT STILL IN DOWNSTAIRS. WAITING FOR HER TO COME UP.
--- NOTE | 2020-10-30 12:28 | NUR ---
REPORT GIVEN BY FERNY SOLIS. AND AVRIL SOLIS. PT IN STABLE CONDITION.
--- NOTE | 2020-10-30 13:04 | NUR ---
PT RESTING. NO DISTRESS NOTED. CALL LIGHT WITHIN REACH.
--- NOTE | 2020-10-30 16:00 | NUR ---
PT IN BED SLEEPING. NO DISTRESS NOTED. CALL LIGHT WITHIN REACH.
--- NOTE | 2020-10-30 19:30 | NUR ---
PATIENT RESTING IN BED AT THIS TIME WATCHING TV. AWAKE ALERT AND ORIENTEDX3. PATIENT HAD SURGERY ON HER BUTTOCKS TODAY. DRESSINGS ARE INTACT AT THIS TIME. CLARK PATENT AND DRAINING YELLOW URINE. IVF NS PATENT AND INFUSING VIA RIGHT ARE AT 80CC/HR. SITE IS HEALTHY WITH GOOD BLOOD RETURN. CALL LIGHT IN REACH. WILL CONT TO MONITOR.
--- NOTE | 2020-10-30 23:30 | NUR ---
PATIENT RESTING IN BED-MEDICATED FOR PAIN WITH DILAUDID 1MG IVP ORDERED FOR PAIN. WOUND CARE TO BUTTOCK WAS DONE. OLD DRESSING REMOVED FOR LARGE AMT OF SEROSANGUINOUS DRAINAGE AND NEW 4X4 GAUZE DRESSINGS WERE APPLIED AND COVERED WITH ABD PAD. SECURED WITH PAPER TAPE. TURNED AND REPOSITIONED. IVF NS PATENT AND INFUSING VIA RIGHT ARE SITE AT 80CC/HR. CALL LIGHT IN REACH. WILL CONT TO MONITOR.
[2020-10-31] VITALS: BP 96/59
[2020-10-31 04:00] VITALS: BP 108/64
--- NOTE | 2020-10-31 04:00 | NUR ---
PATIENT RESTING IN BED AT THIS TIME-CONT TO HAVE SEVERE PAIN TO LEVAR BUTTOCKS FROM I&D OF FISTULA TO BOTH BUTTOCKS. DRESSINGS TO BUTTOCKS ARE INTACT. CLARK PATENT AND DRAINING YELLOW URINE. IVF NS PATENT AND INFUSING VIA RIGHT FOREARM SITE AT 80CC/HR. SITE REMAINS HEALTHY. ASSISTED PATIENT WITH COLOSTOMY CARE. EMPTIED 250CC OF PUDDING THICKNESS BROWN STOOL. CALL LIGHT IN REACH. WILL CONT TO MONITOR.
[2020-10-31 05:52] LABS: HEMOGLOBIN 8.3 g/dl (12.0-16.0); MEAN CELL VOLUME 94.7 fL CALC (80.0-100.0); MEAN CORPUSCULAR HGB 29.1 pG CALC (26.0-32.0); MEAN CORPUSCULAR HGB CONC 30.7 g/dL CAL (32.0-36.0); RED BLOOD COUNT 2.85 mill/uL (4.20-5.60); RED CELL DISTRI WIDTH 15.5 % (11.5-15.5)
[2020-10-31 06:30] LABS: ANION GAP 8 (6-22 (CALC)); BUN 8 mg/dL (7-17); BUN/CREATININE RATIO 12 (12-20 (CALC)); CARBON DIOXIDE 23 mmol/l (22-30); CHLORIDE 105 mmol/l (95-108); CREATININE 0.6 mg/dL (0.5-1.0); GFR > 60 ML/MIN (>=60 (CALC)); GFR FOR AFR.AMER. > 60 ML/MIN (>=60 (CALC)); POTASSIUM 3.8 mmol/l (3.5-5.1); SODIUM 132 mmol/l (137-146)
[2020-10-31 07:30] VITALS: BP 102/60
--- NOTE | 2020-10-31 07:30 | NUR ---
PT LYING IN BED AWAKE, BEDSIDE REPORT RECIEVED. ASSESMENT COMPLETED, NO COMPLAINTS/DISTRESS AT THIS TIME.
--- NOTE | 2020-10-31 12:11 | NUR ---
PT IN BED LYING AWAKE WATCHING TV. PRN PAIN MEDICATION GIVEN. REPOSITIONED PATIENT WITH PILLOWS TO ALLEVIATE PRESSURE TO BUTTOCKS.
--- NOTE | 2020-10-31 16:44 | NUR ---
PT TRANSFERED TO PACU
--- NOTE | 2020-10-31 16:45 | NUR ---
PATIENT TO UNIT FROM MS FLOOR IN BED ACCOMPANIED BY RN. JUST RECEIVED PERCOCET FOR PAIN BUT HAS HAD NO RELIEF YET. CLOSTOMY BAG IN PLACE. PATIENT STATES SHE CHANGES HER OWN AND HAS SUPPLIES AT BEDSIDE. IV OF NS VIA #22 CANULA IN RT FOREARM. RESPIRATIONS EVEN AND UNLABORED.
[2020-10-31 16:55] VITALS: BP 142/69
--- NOTE | 2020-10-31 17:12 | NUR ---
COLD WET WASHCLOTHES APPLIED TO FOREHEAD AND BOTH ARMPITS FOR TEMPERATURE REDUCTION. ALSO GIVEN COLD WATER AND JUICE TO DRINK.
--- NOTE | 2020-10-31 19:28 | NUR ---
PATIENT CHANGED COLOSTOMY BAG.
--- NOTE | 2020-11-01 01:06 | NUR ---
2020-coccyx area -dressing changed wet to dry with paper tape. IV right without signs of infiltration. 135/62-64-96%-20. 2254-c/o severe burning pain at coccyx. Percocet given PO.
[2020-11-01 04:57] LABS: HEMATOCRIT 27.1 % (37.0-47.0); HEMOGLOBIN 8.2 g/dl (12.0-16.0); MEAN CELL VOLUME 93.4 fL CALC (80.0-100.0); MEAN CORPUSCULAR HGB 28.3 pG CALC (26.0-32.0); MEAN CORPUSCULAR HGB CONC 30.3 g/dL CAL (32.0-36.0); RED BLOOD COUNT 2.9 mill/uL (4.20-5.60); RED CELL DISTRI WIDTH 15.7 % (11.5-15.5)
[2020-11-01 05:10] LABS: ANION GAP 8 (6-22 (CALC)); BUN 9 mg/dL (7-17); BUN/CREATININE RATIO 16 (12-20 (CALC)); CARBON DIOXIDE 21 mmol/l (22-30); CHLORIDE 108 mmol/l (95-108); CREATININE 0.6 mg/dL (0.5-1.0); GFR > 60 ML/MIN (>=60 (CALC)); GFR FOR AFR.AMER. > 60 ML/MIN (>=60 (CALC)); MAGNESIUM 1.5 mg/dL (1.6-2.3); POTASSIUM 3.8 mmol/l (3.5-5.1); SODIUM 133 mmol/l (137-146)
--- NOTE | 2020-11-01 08:10 | NUR ---
PT note Attempted to see the patient x 2 - she adamantly refuses
[2020-11-01 09:32] VITALS: BP 120/66
--- NOTE | 2020-11-01 11:01 | NUR ---
Patient did supine B LE AROM exercises: hip and knee flexion and extension, hip adduction and abduction, ankle pumps, and gluteal squeezes for 5 to 8 reps with constant verbal cuing and patient exhibiting moderate muscle guarding. Patient did moderate assistance x 1 with log rolling bed mobility ADLs.
--- NOTE | 2020-11-01 12:03 | NUR ---
DRESSING CHANGED. SKIN PIN WARM AND DRY. NO DRAINAGE PRESENT AT OPEN SITES ON BUTTOCKS. FLUFFS, ABD GAUZE AND TAPE APPLIED TO AREA. LUNCH TRAY GIVEN TO PATIENT.
--- NOTE | 2020-11-01 12:18 | NUR ---
1030-HOSPITALIST ROUNDED ON PT. NEW ORDERS RECEIVED
--- NOTE | 2020-11-01 13:36 | NUR ---
CASE MANAGEMENT AND REHAB FLORICULTURE PROFESSOR IN TO SPEAK WITH PT
[2020-11-01 17:35] VITALS: BP 134/64
--- NOTE | 2020-11-01 19:30 | NUR ---
RECEIVED PATIENT REPORT. PATIENT ASKING FOR CHOCOLATE ICE CREAM AT THIS TIME AND PAIN MEDICATION. INSTRUCTED PATIENT THAT PAIN MEDICATION IS NOT DUE UNTIL 1999. CHOCOLATE CAKE GIVEN PER REQUEST. 1999 ASSESSMENT COMPLETE. PATIENT GIVEN PAIN MEDICATION FOR PAIN OF "9". OSTOMY BAG WITH SEMI LIQUID STOOL. PATIENT GIVEN ESSENTIAL ITEMS FOR HER TO EMPTY THE OSTOMY BAG.
[2020-11-01 20:00] VITALS: BP 105/55
--- NOTE | 2020-11-01 21:25 | NUR ---
DRESSING CHANGE TO LEVAR BUTTOCK AREA PERFORMED USING STERILE TECHNIQUE. WOUNDS ON RIGHT BUTTOCK WITH CLEAN WOUND BASE. WOUND ON UPPER LEFT BUTTOCK WITH SMALL AREA OF EXUDATE. LONG WOUND ON LEFT BUTTOCK HAS SMALL AREA OF EXUDATE. PATIENT TOLERATED PROCEDURE WELL. REPOSTITIONED FOR COMFORT.
--- NOTE | 2020-11-02 03:06 | NUR ---
PATIENT RESTING COMFORTABLY. NO ACUTE DISTESS NOTED.
--- NOTE | 2020-11-02 04:25 | NUR ---
PATIENT STATED SHE FELT THERE WAS LIQUID IN THE BRANDI AREA. BRANDI CARE GIVEN. LABIA AND BOTTOM OF BUTTOCK IS REDDENED AND SWOLLEN WITH SMALL AREAS THAT THE SKIN IS BREAKING DOWN. AREA DRIED WELL. ENCOURAGED TO STAY ON SIDE. PATIENT ASKED ABOUT WASHING HER HAIR. HAIR WASHED WITH NO RINSE SHAMPOO REQUESTED AND TOWEL DRIED.
[2020-11-02 04:47] LABS: HEMATOCRIT 27.6 % (37.0-47.0); HEMOGLOBIN 8.3 g/dl (12.0-16.0); MEAN CELL VOLUME 93.6 fL CALC (80.0-100.0); MEAN CORPUSCULAR HGB 28.1 pG CALC (26.0-32.0); MEAN CORPUSCULAR HGB CONC 30.1 g/dL CAL (32.0-36.0); RED BLOOD COUNT 2.95 mill/uL (4.20-5.60); RED CELL DISTRI WIDTH 15.4 % (11.5-15.5)
[2020-11-02 05:19] LABS: ANION GAP 9 (6-22 (CALC)); BUN 9 mg/dL (7-17); BUN/CREATININE RATIO 15 (12-20 (CALC)); CARBON DIOXIDE 21 mmol/l (22-30); CHLORIDE 109 mmol/l (95-108); CREATININE 0.7 mg/dL (0.5-1.0); GFR > 60 ML/MIN (>=60 (CALC)); GFR FOR AFR.AMER. > 60 ML/MIN (>=60 (CALC)); MAGNESIUM 1.7 mg/dL (1.6-2.3); POTASSIUM 4.2 mmol/l (3.5-5.1); SODIUM 135 mmol/l (137-146)
[2020-11-02 05:42] VITALS: BP 105/51
[2020-11-02 09:30] VITALS: BP 128/58
--- NOTE | 2020-11-02 09:38 | NUR ---
0930: pt awake, alert while lying in bed, medicated for pain of 10 in lower back. pt repostiioned in bed. ASSESSMENT CHARTED.
--- NOTE | 2020-11-02 11:19 | NUR ---
1120 PT REFUSES DRESSING CHANGE AT THIS TIME. DESIRES TO WAIT UNTIL TIME FOR NEXT PAIN MEDICATION. OSTOMY BAG EMPTIED FOR LARGE AMOUNT SOFT BROWN STOOL
--- NOTE | 2020-11-02 11:40 | NUR ---
PT DECLINED DRESSING CHANGE UNTIL NEXT PAIN MEDICATION IS DUE.
[2020-11-02] MEDS ORDERED: PERCOCET 10/31 COMBO PO (12:07)
[2020-11-02] MEDS ORDERED: METRONIDAZOL500 MG PO (12:33)
[2020-11-02] MEDS ORDERED: LEVAQUIN750 M1 PO (12:33)
--- NOTE | 2020-11-02 13:13 | NUR ---
DRESSING CHANGED. SMALL AMOUNT EXUDATE FROM WOUND LEFT LOWER BUTTOCK. DRY 4 X 4, ABD AND MESH PANTS APPLIED TO WOUNDS. PT TOLERATED PROCEDURE WELL
--- NOTE | 2020-11-02 13:30 | NUR ---
[facility] REPORT CALLED TO [facility]. SPOKE WITH IGNACIO ZAMORA. PLAN FOR PT TO BE TRANSFERRED AT 4PM. IV TO BE D/C. DISCHARGE TRANSFER PACKET PERPARED BY CASE MANAGEMENT.
[2020-11-02 14:27] VITALS: BP 108/53
--- NOTE | 2020-11-02 16:11 | NUR ---
1555: Pt transferred to [facility] with slide board, transferred to [facility] stable., accompanied by health aid and Ann per Case Management.
== END 2020-11-02 15:55 ==
LOC: ED 09:08 → ED-I 14:11 → ED 14:39 → MS2 14:40 → MSH 10-31 15:56
PROVIDERS: Emergency Medicine; Nurse Practitioner; ADMIT Internal Medicine; ATTEND Internal Medicine
PROC: 0HD8XZZ Extraction of Buttock Skin, External Approach (ICD-10-PCS; principal; 2020-10-30)
DX: S32.592A Other specified fracture of left pubis, initial encounter for closed fracture (principal); S32.591A Other specified fracture of right pubis, initial encounter for closed fracture; K50.913 Crohn's disease, unspecified, with fistula; M41.9 Scoliosis, unspecified; F41.9 Anxiety disorder, unspecified; F32.9 Major depressive disorder, single episode, unspecified; F17.200 Nicotine dependence, unspecified, uncomplicated; B96.5 Pseudomonas (aeruginosa) (mallei) (pseudomallei) as the cause of diseases classified elsewhere; B37.3 Candidiasis of vulva and vagina; W01.190A Fall on same level from slipping, tripping and stumbling with subsequent striking against furniture, initial encounter; Y92.009 Unspecified place in unspecified non-institutional (private) residence as the place of occurrence of the external cause; Z93.3 Colostomy status; Z90.49 Acquired absence of other specified parts of digestive tract; Z20.822 Contact with and (suspected) exposure to COVID-19
CPT/HCPCS: G0378; J0692; J3475; Q3014; Q9967

== ENCOUNTER 2020-12-19 15:42 | Emergency (ER) | payer MEDICARE ==
[~2020-12-19] VITALS: Ht 177.8 cm; Wt 61.4 kg
[~2020-12-19 15:42] MED LIST changes: +BUSPAR5 MG; +CYANOCOBAL1000 MCG/M IM; +LEVAQUIN750 M1 PO; +METRONIDAZOL500 MG PO; +PERCOCET 10/31 COMBO PO; +PROTONIX20 M1 PO
[2020-12-19 16:51] LABS: MEAN CORPUSCULAR HGB 26.5 pG CALC (26.0-32.0); MEAN CORPUSCULAR HGB CONC 31.6 g/dL CAL (32.0-36.0); NEUT# 15.93 thou/uL (2.00-7.15); RED BLOOD COUNT 4.23 mill/uL (4.20-5.60); RED CELL DISTRI WIDTH 21.6 % (11.5-15.5)
[2020-12-19 17:01] LABS: HEMATOCRIT 35.4 % (37.0-47.0); HEMOGLOBIN 11.2 g/dl (12.0-16.0); MEAN CELL VOLUME 83.7 fL CALC (80.0-100.0)
[2020-12-19 17:06] LABS: POTASSIUM 3.6 mmol/l (3.5-5.1)
[2020-12-19 17:08] LABS: ALBUMIN 3.5 g/dL (3.2-5.0); CREATININE 1.9 mg/dL (0.5-1.0); TOTAL PROTEIN 8.9 g/dL (6.3-8.2)
[2020-12-19 18:09] LABS: URINE BLOOD DIPSTICK SMALL (NEGATIVE); URINE GLUCOSE - DIPSTICK NEGATIVE (NEGATIVE); URINE KETONE TRACE mg/dL (NEGATIVE); URINE PH 5.5 (4.5-8.0); URINE PROTEIN - DIPSTICK TRACE mg/dL (NEG-TRACE); URINE SPECIFIC GRAVITY 1.015; URINE UROBILINOGEN - DIPSTICK 0.2 E.U./dL (0.2)
[2020-12-19 18:15] LABS: URINE BILIRUBIN - DIPSTICK NEGATIVE (NEGATIVE); URINE LEUK ESTERASE MODERATE (NEGATIVE); URINE NITRITE - DIPSTICK NEGATIVE (Negative)
[2020-12-19 18:16] LABS: URINE COLOR DK. YELLOW
[2020-12-19 18:25] LABS: URINE SQUAMOUS EPITHELIAL CELL FEW EPI/hpf (0-FEW); URINE WBC 50-100 WBC/hpf (0-5)
[2020-12-19 20:18] VITALS: BP 86/59
== END 2020-12-19 20:20 | disposition short-term general hospital (02) ==
LOC: ED 15:42
PROVIDERS: Physician Assistant Surgical
DX: A41.9 Sepsis, unspecified organism (principal); N17.9 Acute kidney failure, unspecified; K61.1 Rectal abscess; K50.90 Crohn's disease, unspecified, without complications; R65.20 Severe sepsis without septic shock; R74.8 Abnormal levels of other serum enzymes; R82.71 Bacteriuria; F41.9 Anxiety disorder, unspecified; F32.A Depression, unspecified; K43.9 Ventral hernia without obstruction or gangrene; L89.159 Pressure ulcer of sacral region, unspecified stage; F17.200 Nicotine dependence, unspecified, uncomplicated; Z93.3 Colostomy status; Z20.822 Contact with and (suspected) exposure to COVID-19; F10.10 Alcohol abuse, uncomplicated; K50.013 Crohn's disease of small intestine with fistula

== ENCOUNTER 2021-03-22 01:44 | Emergency (ER) | payer MEDICARE ==
[~2021-03-22] VITALS: Ht 177.8 cm; Wt 65.0 kg
[2021-03-22 02:31] LABS: HEMATOCRIT 34.4 % (37.0-47.0); HEMOGLOBIN 10.3 g/dl (12.0-16.0); IMMATURE GRANULOCYTES 0.8 % (0.0-5.0); MEAN CORPUSCULAR HGB 28.2 pG CALC (26.0-32.0); MEAN CORPUSCULAR HGB CONC 29.9 g/dL CAL (32.0-36.0); NEUT# 6.59 thou/uL (2.00-7.15); RED BLOOD COUNT 3.65 mill/uL (4.20-5.60); RED CELL DISTRI WIDTH 17.2 % (11.5-15.5)
[2021-03-22 02:35] LABS: MEAN CELL VOLUME 94.2 fL CALC (80.0-100.0)
[2021-03-22 02:36] LABS: URINE BILIRUBIN - DIPSTICK NEGATIVE (NEGATIVE); URINE BLOOD DIPSTICK NEGATIVE (NEGATIVE); URINE COLOR YELLOW; URINE GLUCOSE - DIPSTICK NEGATIVE (NEGATIVE); URINE KETONE NEGATIVE (NEGATIVE); URINE LEUK ESTERASE TRACE (NEGATIVE); URINE PH 6.5 (4.5-8.0); URINE PROTEIN - DIPSTICK NEGATIVE (NEG-TRACE); URINE SPECIFIC GRAVITY <=1.005; URINE UROBILINOGEN - DIPSTICK 0.2 E.U./dL (0.2)
[2021-03-22 02:42] LABS: URINE NITRITE - DIPSTICK NEGATIVE (Negative)
[2021-03-22 02:55] LABS: ALBUMIN 3.8 g/dL (3.2-5.0); ALKALINE PHOSPHATASE 422 u/l (38-126); AMYLASE 222 u/l (30-110); BUN 20 mg/dL (7-17); ETHYL ALCOHOL 236 mg/dl (0-30); LIPASE 574 u/l (23-300); POTASSIUM 3.9 mmol/l (3.5-5.1); TOTAL PROTEIN 8.7 g/dL (6.3-8.2)
[2021-03-22 03:03] LABS: ANION GAP 19 (6-22 (CALC)); BILIRUBIN, TOTAL 0.3 mg/dL (0.0-1.4); BUN/CREATININE RATIO 22 (12-20 (CALC)); CARBON DIOXIDE 15 mmol/l (22-30); CHLORIDE 113 mmol/l (95-108); CREATININE 0.9 mg/dL (0.5-1.0); GFR > 60 ML/MIN (>=60 (CALC)); GFR FOR AFR.AMER. > 60 ML/MIN (>=60 (CALC)); SGOT/AST 52 u/l (14-36); SODIUM 143 mmol/l (137-146)
[2021-03-22 03:06] LABS: MYOGLOBIN 42 ng/mL (0 - 62)
[2021-03-22 08:31] VITALS: BP 144/68
== END 2021-03-22 08:32 | disposition home or self-care (01) ==
LOC: ED 01:44 → ED-I 05:40 → ED 08:32
PROVIDERS: Emergency Medicine
DX: R74.8 Abnormal levels of other serum enzymes (principal); F10.129 Alcohol abuse with intoxication, unspecified; K50.90 Crohn's disease, unspecified, without complications; F41.9 Anxiety disorder, unspecified; F32.A Depression, unspecified; F17.200 Nicotine dependence, unspecified, uncomplicated; Z93.3 Colostomy status; Z20.822 Contact with and (suspected) exposure to COVID-19
CPT/HCPCS: Q9967; S0164

== ENCOUNTER 2021-10-05 02:37 | Emergency (ER) | payer MEDICARE ==
[~2021-10-05] VITALS: Ht 177.8 cm; Wt 72.0 kg
[2021-10-05] VITALS (47 sets, daily range): BP systolic 84–141; BP diastolic 35–77
[2021-10-05 03:40] LABS: HEMATOCRIT 32.5 % (37.0-47.0); HEMOGLOBIN 10.3 g/dl (12.0-16.0); IMMATURE GRANULOCYTES 0.1 % (0.0-5.0); MEAN CORPUSCULAR HGB CONC 31.7 g/dL CAL (32.0-36.0); NEUT# 5.46 thou/uL (2.00-7.15); RED BLOOD COUNT 4.12 mill/uL (4.20-5.60); RED CELL DISTRI WIDTH 17.1 % (11.5-15.5)
[2021-10-05 03:43] LABS: MEAN CELL VOLUME 78.9 fL CALC (80.0-100.0)
[2021-10-05 04:04] LABS: ALBUMIN 3.7 g/dL (3.2-5.0); ALKALINE PHOSPHATASE 282 u/l (38-126); ANION GAP 16 (6-22 (CALC)); BILIRUBIN, TOTAL 0.2 mg/dL (0.0-1.4); BUN 17 mg/dL (7-17); BUN/CREATININE RATIO 18 (12-20 (CALC)); CARBON DIOXIDE 16 mmol/l (22-30); CHLORIDE 113 mmol/l (95-108); CREATININE 0.9 mg/dL (0.5-1.0); ETHYL ALCOHOL 187 mg/dl (0-30); GFR FOR AFR.AMER. > 60 ML/MIN (>=60 (CALC)); GFR OTHER RACES > 60 ML/MIN (>=60 (CALC)); MAGNESIUM 1.5 mg/dL (1.6-2.3); POTASSIUM 3.7 mmol/l (3.5-5.1); SGOT/AST 26 u/l (14-36); SODIUM 142 mmol/l (137-146); TOTAL PROTEIN 8.1 g/dL (6.3-8.2)
[2021-10-05 06:40] LABS: URINE BILIRUBIN - DIPSTICK NEGATIVE (NEGATIVE); URINE BLOOD DIPSTICK TRACE-INTACT (NEGATIVE); URINE COLOR YELLOW; URINE GLUCOSE - DIPSTICK NEGATIVE (NEGATIVE); URINE KETONE NEGATIVE (NEGATIVE); URINE SPECIFIC GRAVITY <=1.005; URINE UROBILINOGEN - DIPSTICK 0.2 E.U./dL (0.2)
[2021-10-05 07:02] LABS: URINE LEUK ESTERASE SMALL (NEGATIVE); URINE NITRITE - DIPSTICK NEGATIVE (Negative)
[2021-10-05 07:03] LABS: URINE PROTEIN - DIPSTICK NEGATIVE (NEG-TRACE)
[2021-10-05 07:05] LABS: URINE BACTERIA FEW hpf; URINE EPITHELIAL CELLS FEW EPI/hpf (0-FEW)
[2021-10-06] VITALS: BP 102/54
[2021-10-08 03:21] VITALS: BP 138/69
[2021-10-08 07:38] LABS: URINE BILIRUBIN - DIPSTICK NEGATIVE (NEGATIVE); URINE BLOOD DIPSTICK NEGATIVE (NEGATIVE); URINE COLOR YELLOW; URINE GLUCOSE - DIPSTICK NEGATIVE (NEGATIVE); URINE KETONE NEGATIVE (NEGATIVE); URINE PROTEIN - DIPSTICK NEGATIVE (NEG-TRACE)
[2021-10-08 07:45] LABS: URINE LEUK ESTERASE SMALL (NEGATIVE); URINE NITRITE - DIPSTICK NEGATIVE (Negative)
[2021-10-08 07:46] LABS: URINE BACTERIA FEW hpf; URINE EPITHELIAL CELLS FEW EPI/hpf (0-FEW)
[2021-10-08 08:11] LABS: HEMATOCRIT 34.7 % (37.0-47.0); HEMOGLOBIN 10.8 g/dl (12.0-16.0); IMMATURE GRANULOCYTES 0.1 % (0.0-5.0); MEAN CELL VOLUME 81.5 fL CALC (80.0-100.0); MEAN CORPUSCULAR HGB 25.4 pG CALC (26.0-32.0); MEAN CORPUSCULAR HGB CONC 31.1 g/dL CAL (32.0-36.0); NEUT# 5.1 thou/uL (2.00-7.15); RED BLOOD COUNT 4.26 mill/uL (4.20-5.60); RED CELL DISTRI WIDTH 17.1 % (11.5-15.5)
[2021-10-08 08:57] VITALS: BP 118/59
[2021-10-08 09:05] LABS: ALBUMIN 3.7 g/dL (3.2-5.0); ALKALINE PHOSPHATASE 327 u/l (38-126); BUN 24 mg/dL (7-17); BUN/CREATININE RATIO 27 (12-20 (CALC)); CHLORIDE 110 mmol/l (95-108); CREATININE 0.9 mg/dL (0.5-1.0); GFR FOR AFR.AMER. > 60 ML/MIN (>=60 (CALC)); GFR OTHER RACES > 60 ML/MIN (>=60 (CALC)); SODIUM 139 mmol/l (137-146); TOTAL PROTEIN 8.6 g/dL (6.3-8.2)
[2021-10-08 09:06] LABS: ANION GAP 10 (6-22 (CALC)); BILIRUBIN, TOTAL 0.4 mg/dL (0.0-1.4); CARBON DIOXIDE 23 mmol/l (22-30); SGOT/AST 46 u/l (14-36)
[2021-10-08 11:57] VITALS: BP 103/53
[2021-10-08 12:01] VITALS: BP 97/48
[2021-10-08 12:30] VITALS: BP 86/44
[2021-10-09 07:17] VITALS: BP 110/47
[2021-10-09 18:09] VITALS: BP 133/68
[2021-10-09 18:30] VITALS: BP 99/54
[2021-10-09 19:05] VITALS: BP 99/54
== END 2021-10-09 19:05 ==
LOC: ED 02:37
PROVIDERS: Emergency Medicine; Family Medicine
DX: T43.222A Poisoning by selective serotonin reuptake inhibitors, intentional self-harm, initial encounter (principal); F32.A Depression, unspecified; F41.9 Anxiety disorder, unspecified; L03.317 Cellulitis of buttock; N39.0 Urinary tract infection, site not specified; K21.9 Gastro-esophageal reflux disease without esophagitis; F17.200 Nicotine dependence, unspecified, uncomplicated; B96.20 Unspecified Escherichia coli [E. coli] as the cause of diseases classified elsewhere; B95.4 Other streptococcus as the cause of diseases classified elsewhere; Z93.3 Colostomy status; Z90.49 Acquired absence of other specified parts of digestive tract; Z20.822 Contact with and (suspected) exposure to COVID-19
CPT/HCPCS: Q9967

== ENCOUNTER 2022-01-26 22:37 | Emergency (ER) | payer MEDICARE ==
[~2022-01-26] VITALS: Ht 177.8 cm; Wt 80.0 kg
[2022-01-26 23:40] LABS: IMMATURE GRANULOCYTES 0.1 % (0.0-5.0); MEAN CELL VOLUME 82.8 fL CALC (80.0-100.0); MEAN CORPUSCULAR HGB 25.5 pG CALC (26.0-32.0); MEAN CORPUSCULAR HGB CONC 30.9 g/dL CAL (32.0-36.0); NEUT# 6.54 thou/uL (2.00-7.15); RED BLOOD COUNT 3.25 mill/uL (4.20-5.60); RED CELL DISTRI WIDTH 14.8 % (11.5-15.5)
[2022-01-26 23:41] LABS: HEMATOCRIT 26.9 % (37.0-47.0); HEMOGLOBIN 8.3 g/dl (12.0-16.0)
[2022-01-27 00:03] LABS: ALBUMIN 3.1 g/dL (3.2-5.0); ALKALINE PHOSPHATASE 313 u/l (38-126); BUN 15 mg/dL (8-23); BUN/CREATININE RATIO 17 (12-20 (CALC)); CARBON DIOXIDE 19 mmol/l (22-30); CHLORIDE 114 mmol/l (95-108); CREATININE 0.9 mg/dL (0.5-1.0); ETHYL ALCOHOL 0 mg/dl (0-30); GFR FOR AFR.AMER. > 60 ML/MIN (>=60 (CALC)); GFR OTHER RACES > 60 ML/MIN (>=60 (CALC)); SGOT/AST 38 u/l (9-36); SODIUM 139 mmol/l (137-146); TOTAL PROTEIN 7.3 g/dL (6.3-8.2)
[2022-01-27 00:05] LABS: ANION GAP 10 (6-22 (CALC)); POTASSIUM 3.6 mmol/l (3.5-5.1)
[2022-01-27 00:10] LABS: BILIRUBIN, TOTAL 0.1 mg/dL (0.0-1.4)
[2022-01-27 00:57] LABS: URINE BILIRUBIN - DIPSTICK NEGATIVE (NEGATIVE); URINE COLOR YELLOW; URINE GLUCOSE - DIPSTICK NEGATIVE (NEGATIVE); URINE KETONE NEGATIVE (NEGATIVE); URINE LEUK ESTERASE MODERATE (NEGATIVE); URINE NITRITE - DIPSTICK POSITIVE (Negative); URINE PROTEIN - DIPSTICK TRACE mg/dL (NEG-TRACE); URINE SPECIFIC GRAVITY 1.015; URINE UROBILINOGEN - DIPSTICK 0.2 E.U./dL (0.2)
[2022-01-27 00:58] LABS: URINE BLOOD DIPSTICK NEGATIVE (NEGATIVE)
[2022-01-27 01:00] LABS: URINE BACTERIA MANY hpf; URINE EPITHELIAL CELLS MODERATE EPI/hpf (0-FEW); URINE WBC 50-100 WBC/hpf (0-5)
[2022-01-27 08:55] VITALS: BP 110/67
== END 2022-01-27 08:59 | disposition short-term general hospital (02) ==
LOC: ED 22:37
PROVIDERS: Emergency Medicine
DX: K61.1 Rectal abscess (principal); N39.0 Urinary tract infection, site not specified; F32.A Depression, unspecified; F17.200 Nicotine dependence, unspecified, uncomplicated
CPT/HCPCS: Q9967

== ENCOUNTER 2022-07-22 19:47 | Emergency (ER) | payer MEDICARE ==
[~2022-07-22] VITALS: Ht 177.8 cm; Wt 70.0 kg
[2022-07-22 19:54] VITALS: BP 129/64
[2022-07-22 20:00] VITALS: BP 145/62
[2022-07-22 20:15] VITALS: BP 145/68
[2022-07-22 20:19] LABS: BASO% 0.3 % (0-3); EOS% 1.1 % (0-8); IMMATURE GRANULOCYTES 0.3 % (0.0-5.0); LYMPH% 37.1 % (15-41); MEAN CELL VOLUME 85.8 fL CALC (80.0-100.0); MEAN CORPUSCULAR HGB 26.9 pG CALC (26.0-32.0); MEAN CORPUSCULAR HGB CONC 31.4 g/dL CAL (32.0-36.0); NEUT# 7.54 thou/uL (2.00-7.15); NEUT% 54.2 % (42-76); RED BLOOD COUNT 4.57 mill/uL (4.20-5.60); RED CELL DISTRI WIDTH 16.1 % (11.5-15.5)
[2022-07-22 20:21] LABS: HEMATOCRIT 39.2 % (37.0-47.0); HEMOGLOBIN 12.3 g/dl (12.0-16.0)
[2022-07-22 20:30] VITALS: BP 133/63
[2022-07-22 20:31] LABS: ALKALINE PHOSPHATASE 266 u/l (38-126); BUN 20 mg/dL (8-23); BUN/CREATININE RATIO 24 (12-20 (CALC)); CHLORIDE 108 mmol/l (95-108); CREATININE 0.8 mg/dL (0.5-1.0); GFR FOR AFR.AMER. > 60 ML/MIN (>=60 (CALC)); GFR OTHER RACES > 60 ML/MIN (>=60 (CALC)); POTASSIUM 3.6 mmol/l (3.5-5.1); SGOT/AST 51 u/l (9-36); SODIUM 140 mmol/l (137-146)
[2022-07-22 20:32] LABS: ALBUMIN 4.2 g/dL (3.2-5.0); ANION GAP 21 (6-22 (CALC)); BILIRUBIN, TOTAL 0.5 mg/dL (0.02-1.3); CARBON DIOXIDE 15 mmol/l (22-30); TOTAL PROTEIN 9.7 g/dL (6.3-8.2)
[2022-07-22 23:14] VITALS: BP 133/63
== END 2022-07-22 23:14 | disposition left against medical advice (07) ==
LOC: ED 19:47
PROVIDERS: Nurse Practitioner
DX: S27.0XXA Traumatic pneumothorax, initial encounter (principal); S27.321A Contusion of lung, unilateral, initial encounter; S40.212A Abrasion of left shoulder, initial encounter; S80.212A Abrasion, left knee, initial encounter; S50.312A Abrasion of left elbow, initial encounter; F10.129 Alcohol abuse with intoxication, unspecified; M41.9 Scoliosis, unspecified; F41.9 Anxiety disorder, unspecified; F32.A Depression, unspecified; F17.200 Nicotine dependence, unspecified, uncomplicated; W18.39XA Other fall on same level, initial encounter; Y92.009 Unspecified place in unspecified non-institutional (private) residence as the place of occurrence of the external cause; Z53.29 Procedure and treatment not carried out because of patient's decision for other reasons

== ENCOUNTER 2022-07-25 17:23 | Inpatient (IN) | payer MEDICARE ==
[2022-07-25] VITALS (14 sets, daily range): BP systolic 118–150; BP diastolic 67–101
[~2022-07-25] VITALS: Ht 177.8 cm; Wt 72.0 kg
[2022-07-25 19:27] LABS: BASO% 0.3 % (0-3); HEMATOCRIT 36.7 % (37.0-47.0); HEMOGLOBIN 11.4 g/dl (12.0-16.0); IMMATURE GRANULOCYTES 0.2 % (0.0-5.0); LYMPH% 24.5 % (15-41); MEAN CELL VOLUME 86.4 fL CALC (80.0-100.0); MEAN CORPUSCULAR HGB 26.8 pG CALC (26.0-32.0); MEAN CORPUSCULAR HGB CONC 31.1 g/dL CAL (32.0-36.0); MONO% 7.8 % (2-13); NEUT# 4.25 thou/uL (2.00-7.15); NEUT% 65.2 % (42-76); RED BLOOD COUNT 4.25 mill/uL (4.20-5.60); RED CELL DISTRI WIDTH 15.9 % (11.5-15.5)
[2022-07-25 19:43] LABS: ALBUMIN 3.7 g/dL (3.2-5.0); ALKALINE PHOSPHATASE 271 u/l (38-126); BUN 21 mg/dL (8-23); BUN/CREATININE RATIO 27 (12-20 (CALC)); CHLORIDE 111 mmol/l (95-108); CREATININE 0.8 mg/dL (0.5-1.0); GFR FOR AFR.AMER. > 60 ML/MIN (>=60 (CALC)); GFR OTHER RACES > 60 ML/MIN (>=60 (CALC)); INTERNATIONAL NORMALIZED RATIO 1.2 RATIO (0.7-1.3); POTASSIUM 3.8 mmol/l (3.5-5.1); PROTHROMBIN TIME 11.9 SECONDS (9.0-12.5); SGOT/AST 36 u/l (9-36); SODIUM 140 mmol/l (137-146); TOTAL PROTEIN 8.5 g/dL (6.3-8.2)
[2022-07-25 19:44] LABS: ANION GAP 14 (6-22 (CALC)); BILIRUBIN, TOTAL 0.2 mg/dL (0.02-1.3); CARBON DIOXIDE 19 mmol/l (22-30)
--- NOTE | 2022-07-25 21:05 | NUR ---
HOURLY ROUNDING COMPLETED
--- NOTE | 2022-07-25 22:00 | NUR ---
HOURLY ROUNDING COMPLETED
--- NOTE | 2022-07-25 23:13 | NUR ---
HOURLY ROUNDING COMPLETED NO NEEDS IDENTIFIED AT THIS TIME.
[2022-07-26] VITALS (7 sets, daily range): BP systolic 127–179; BP diastolic 69–92
--- NOTE | 2022-07-26 | NUR ---
PATIENT ADMITTED FROM ER VIA STRETCHER WITH ER STAFF IN ATTENDANCE. PATIENT IS ABLE TO ASSIST TO THE BED. PATIENT IS ALERT AND ORIENTEDX3-ADMITTED FOR LEFT SIDE PNEUMOTHORAX WITH LEFT UPPER CHEST CHEST TUBE-TUBEIS INTACT AND TO [employer] MED SUCTION. PATIENT BREATHING IS BETTER SHE STATES SINCE THE TUBE WAS PLACED. LUNGS ARE CLEAR UPON AUSCULTATION. PATIENT WITH COLOSTOMY TO LEFT ABD AND DOES SELF CARE. 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 KEEPS THE AREA CLEAN WITH SALINE AND THEN WEARS A PAD. PATIENT PROVIDED WITH HEALTHY CHOICE TURKEY DINNER. APPETITE IS GOOD. ORIENTED PATIENT TO ROOM AND SURROUNDINGS. INSTRUCTED ON USE OF NURSE CALL LI GHT SYSTEM AND TV REMOTE. SAFETY PRECAUTIONS REINFORCED. CALL LIGHT IN REACH. WILL CONT TO MONITOR.
--- NOTE | 2022-07-26 02:19 | NUR ---
PATIENT IS CALLING OUT AND CRYING STATES THAT IT FEELS LIKE A HOT POKER TO RIGHT UPPER CHEST. CHEST TUBE WAS CHECKED AND REMAINS INTACTT AT 80MMHG SUCTION. CONNECTIONS ARE INTACT. VS WERE CHECK AND O2 SAT WAS 95-96% ON RA. HR-1LOW 100'S. BP ELEVATED AT 170/80'S. MEDICATED WITH DILAUDID ORDERED.REASSURANCE OFFERED. CALL LIGHT IN REACH. WILL CONT TO MONITOR.
--- NOTE | 2022-07-26 02:43 | NUR ---
APPEARS SLEEPING AT THIS TIME POSITIONED ON HER RIGHT SIDE. EYES CLOSED AND RESPS ARE EVEN AND UNLABORED. CT INTACT TO LEFT UPPER CHEST. IVF NS PATENT AND INFUSING ORDERED. TELE MONITOR IN PLACE AND NOW READING SR-77. CALL LIGHT IN REACH. WILL CONT TO MONITOR.
--- NOTE | 2022-07-26 04:52 | NUR ---
PATIENT RESTING IN BED AT THIS TIME. WAS RESTING QUIETLY-ASKING ABOUT MORE PAIN [id number] TO THE PATIENT AGAIN THAT THE DILAUDID IS 0.5MG IVP EVERY 6HOURS. PATIENT STATES THAT SHE THOUGHT SHE COULD GET AGAIN AT 5AM AND SHE WAS WATCHING THE CLOCK FOR IT. EXPLAINED THAT THE MEDICATION WILL NOT BE DUE AGAIN UNTIL 8AM AND PATIENT THEN BECAME TEARFUL AGAIN. ENCOURAGED PATIENT TO TRY TO REST AND NOT WATCH THE CLOCK. IVF PATIENT AND INFUSING VIA LEFT HAND SITE. TELE MONITOR IN PLACE-LAST READING SR PVC'S 74. CHEST TUBE TO LEFT UPPER CHEST INTACT TO 80MMHG SUCTION. CALL LIGHT IN REACH. WILL CONT TO MONITOR.
--- NOTE | 2022-07-26 08:30 | NUR ---
PATIENT RESTING REPORTING PAIN CONSTANT IN CHEST AREA FROM CHEST TUBE AND TRAUMA FROM FALLING PRIOR TO COMING TO HOSPITAL. PATIENT ABLE TO SELF PUT HER SELF ON BSC WITHOUT ANY ISSUE. PATIENT ENCOURAGED TO EAT AND REST. WILL CONTINUE TO MONITOR.
--- NOTE | 2022-07-26 18:02 | NUR ---
PATIENT REPORTS PAIN UNCONTROLLED SINCE THIS MORNING. PATIENT ABLE TO SELF CARE TO BSC WITHOUT ANY ISSUES. PATIENT EATING AND DRINKING WITHOUT ANY ISSUES. WILL CONTINUE TO MONITOR. COLOSTOMY BAG EMPTIED PATIENT TAKES CARE OF BAG HERSELF.
--- NOTE | 2022-07-26 19:58 | NUR ---
PT IN BED WATCHING TV. REPORT PAIN LEFT SIDE OF CHEST 11/09, CHEST TUBE IN PLACE. PT MEDICATED PER APR. SHIFT ASSESMENT COMPLETED. NO S/S OF DISTRESS NOTED. BREATHING IS EVEN AND UNLABORED. TELE IN PLACE. IV TO LAC 2OG INFUSHING NORMAL SALINE AT 43MLS. NO OTHER NEEDS OR CONCERN VOIVED AT THIS TIME. CALL LIGHT IN REACH AND BED IN LOWEST POSITION.
[2022-07-27 00:03] VITALS: BP 154/84
--- NOTE | 2022-07-27 00:50 | NUR ---
PT IN BED AWAKE. I EXPLAIN TO PT THAT THE DOCTOR ORDER TO CHANGE CHEST TUBE TO WATER SEAL. PT STATES UNDERSTANDING. PT REPORT INCREASING PAIN 8/10 BEFORE I CHANGE TO WATER SEAL AND WHEN I TURN OF THE SUCTION PAIN INCREASE TO 10/10. SUCTION TURN BACK ON. PT MEDICATED PER APR.
--- NOTE | 2022-07-27 01:05 | NUR ---
PT REPORTS PAIN 5/10. CHEST TUBE TURN OFF. CALL LIGHT IN REACH AND BED IN LOWEST POSITION.
--- NOTE | 2022-07-27 01:20 | NUR ---
[place] [facility] [place]. CALL LIGHT IN REACH.
[2022-07-27 05:15] VITALS: BP 154/84
--- NOTE | 2022-07-27 05:28 | NUR ---
PT TAKEN TO XRAY. PT PREMEDICATED FOR PAIN DUE TO PAIN INCREASES WITH PT MOVEMENT. XRAY TAKEN WITHOUT COMPLICATION. PT RETURN TO ROOM, PT TRANSFER BY HERSELF TO BSC WITHOUT COMPLICATIONS. NO NEEDS OR CONCERN VOICED AT THIS TIME. CALL LIGHT IN REACH AND BED IN LOWEST POSITION.
[2022-07-27 07:03] VITALS: BP 149/72
[2022-07-27 14:57] VITALS: BP 150/86
[2022-07-27 18:25] VITALS: BP 132/68
--- NOTE | 2022-07-27 21:16 | NUR ---
PT IN BED WATCHING TV. NO S/S OF DISTRESS NOTED. BREATHING EVEN AND UNLABORED. PT REPORTS PAIN. PT MEDICATED PER APR. SHIFT ASSESSMENT COMPLETED. CHEST TUBE ON WATER SEAL TO LEFT UPPER CHEST. IV TO RFA 22G SL PANTENT AND FLUSHES WELL. PT AMBULATED TO RESTROOM WITHOUT COMPLICATIONS. CALL LIGHT IN REACH AND BED IN LOWEST POSITION.
--- NOTE | 2022-07-28 00:42 | NUR ---
PT REPORT PAIN 12/09. PT MEDICATED PER APR. NO S/S OF DISTRESS NOTED. BREATHING IS EVEN AND UNLABORED. CALL LIGHT IN REACH AND BED IN LOWEST POSITION.
[2022-07-28 04:04] VITALS: BP 120/66
--- NOTE | 2022-07-28 04:50 | NUR ---
PT IN BED RESTING WITH EYES CLOSED BREATHING EVEN AND UNLABORED. NO S/S OF DISTRESS NOTED CALL LIGHT IN REACH AND BED IN LOWEST POSITION.
--- NOTE | 2022-07-28 05:39 | NUR ---
patient has colostomy and empties it on her own
--- NOTE | 2022-07-28 08:00 | NUR ---
PT RESTING IN BED WATCHING TV UPON ENTERING ROOM. STATES PAIN ON RIBS. ASSESSMENT ALLOWED. BREATHING IS EVEN AND UNLABORED. EDUCATED PT IN PLAN PF CARE. PT INIDCATED UNDERSTANDING. FALL/SAFTEY PRECAUTION IN PLACE. CALL LIGHT WITHIN REACH
--- NOTE | 2022-07-28 08:12 | NUR ---
PT TRANSPORTED VIA WC TO CHEST XRAY WITH VARNISH BLENDER.
[2022-07-28] MEDS ORDERED: PERCOCET 5/325M1 TAB PO (10:50)
--- NOTE | 2022-07-28 12:52 | NUR ---
PT STATES PAIN 09/08, COMFORT MEASURES PROVIDED. MEDICATED. FALL/SAFTEY PRECAUTION IN PLACE. CALL LIGHT WITHIN REACH.
--- NOTE | 2022-07-28 16:45 | NUR ---
Discharge instructions given. Patient verbalizes understanding of same. Discharged in stable condition via Wheelchair to Home with staff. All belongings sent with pt.
== END 2022-07-28 17:00 | disposition home or self-care (01) | DRG 200 ==
LOC: ED 17:23 → ED-I 21:40 → ED 22:02 → MS2 22:03
PROVIDERS: Nurse Practitioner; ADMIT Surgery; ATTEND Surgery
PROC: 0W9B30Z Drainage of Left Pleural Cavity with Drainage Device, Percutaneous Approach (ICD-10-PCS; principal; 2022-07-25)
PROC: 0WPBX0Z Removal of Drainage Device from Left Pleural Cavity, External Approach (ICD-10-PCS; 2022-07-28)
DX: S27.0XXA Traumatic pneumothorax, initial encounter (principal); K50.90 Crohn's disease, unspecified, without complications; S22.42XA Multiple fractures of ribs, left side, initial encounter for closed fracture; S27.321A Contusion of lung, unilateral, initial encounter; S40.212A Abrasion of left shoulder, initial encounter; F41.9 Anxiety disorder, unspecified; F32.A Depression, unspecified; F17.200 Nicotine dependence, unspecified, uncomplicated; W18.39XA Other fall on same level, initial encounter

== ENCOUNTER 2022-07-30 01:32 | Emergency (ER) | payer MEDICARE ==
[~2022-07-30] VITALS: Ht 177.8 cm; Wt 71.4 kg
[2022-07-30] VITALS (19 sets, daily range): BP systolic 96–156; BP diastolic 61–95
[~2022-07-30 01:32] MED LIST changes: +PERCOCET 5/325M1 TAB PO
[2022-07-30 02:00] LABS: BASO% 0.4 % (0-3); EOS% 1.6 % (0-8); HEMATOCRIT 37.5 % (37.0-47.0); HEMOGLOBIN 11.9 g/dl (12.0-16.0); IMMATURE GRANULOCYTES 0.7 % (0.0-5.0); LYMPH% 26.1 % (15-41); MEAN CELL VOLUME 83.3 fL CALC (80.0-100.0); MEAN CORPUSCULAR HGB 26.4 pG CALC (26.0-32.0); MEAN CORPUSCULAR HGB CONC 31.7 g/dL CAL (32.0-36.0); MONO% 9.4 % (2-13); NEUT# 4.73 thou/uL (2.00-7.15); NEUT% 61.8 % (42-76); RED BLOOD COUNT 4.5 mill/uL (4.20-5.60); RED CELL DISTRI WIDTH 14.9 % (11.5-15.5)
[2022-07-30 02:10] LABS: ALBUMIN 4.1 g/dL (3.2-5.0); ALKALINE PHOSPHATASE 347 u/l (38-126); ANION GAP 17 (6-22 (CALC)); BUN 22 mg/dL (8-23); BUN/CREATININE RATIO 28 (12-20 (CALC)); CARBON DIOXIDE 18 mmol/l (22-30); CHLORIDE 111 mmol/l (95-108); CREATININE 0.8 mg/dL (0.5-1.0); GFR FOR AFR.AMER. > 60 ML/MIN (>=60 (CALC)); GFR OTHER RACES > 60 ML/MIN (>=60 (CALC)); POTASSIUM 3.7 mmol/l (3.5-5.1); SGOT/AST 44 u/l (9-36); SODIUM 142 mmol/l (137-146); TOTAL PROTEIN 9.2 g/dL (6.3-8.2)
[2022-07-30 02:12] LABS: BILIRUBIN, TOTAL 0.3 mg/dL (0.02-1.3)
== END 2022-07-30 06:04 | disposition short-term general hospital (02) ==
LOC: ED 01:32
PROVIDERS: Emergency Medicine
PROC: 0W9B30Z Drainage of Left Pleural Cavity with Drainage Device, Percutaneous Approach (ICD-10-PCS; principal; 2022-07-30)
DX: S27.0XXA Traumatic pneumothorax, initial encounter (principal); F41.9 Anxiety disorder, unspecified; F32.A Depression, unspecified; F10.10 Alcohol abuse, uncomplicated; K50.90 Crohn's disease, unspecified, without complications; F17.200 Nicotine dependence, unspecified, uncomplicated; X58.XXXA Exposure to other specified factors, initial encounter

== ENCOUNTER 2023-11-08 23:26 | Emergency (ER) | payer MEDICARE ==
[~2023-11-08] VITALS: Ht 177.8 cm; Wt 77.0 kg
[2023-11-08] MEDS ORDERED: predniSONE 20 MG/TAB PO ONE (23:45)
[2023-11-08] MEDS ORDERED: ACETAMINOPHEN 500 MG TAB PO ONE (23:45)
[2023-11-08] MEDS ORDERED: GABAPENTIN 300 MG/CAP PO ONE (23:45)
[2023-11-08 23:49] VITALS: BP 186/96
[2023-11-09] MEDS ORDERED: PREDNISONE10 MG PO (00:03)
[2023-11-09] MEDS ORDERED: BUSPAR15 M1 PO (00:03)
[2023-11-09] MEDS ORDERED: ZOLOFT50 MG PO (00:04)
[2023-11-09] MEDS ORDERED: REMERON7.5 MG PO (00:05)
[2023-11-09] MEDS ORDERED: [UNRECOGNIZED DRUG - CODE] PO (00:06)
[2023-11-09] MEDS ORDERED: RINVOQ30 MG PO (00:07)
[2023-11-09] MEDS ORDERED: GABAPENTIN300 M2 PO (00:08)
[2023-11-09] MEDS ORDERED: BACLOFEN10 MG PO (00:08)
[2023-11-09 01:00] VITALS: BP 182/93
[2023-11-09 01:16] VITALS: BP 182/80
[2023-11-09 01:30] VITALS: BP 184/85
[2023-11-09] MEDS ORDERED: PREDNISONE50 MG PO (01:51)
[2023-11-09] MEDS ORDERED: GABAPENTIN600 MG PO (01:51)
[2023-11-09 02:00] VITALS: BP 174/84
[2023-11-09 02:06] VITALS: BP 174/84
== END 2023-11-09 02:06 | disposition home or self-care (01) ==
LOC: ED 23:26
DX: M54.12 Radiculopathy, cervical region (principal); Z72.0 Tobacco use